=== PATIENT | male | born 1955 | race Caucasian/White ===

== ENCOUNTER 2017-03-15 12:40 | Emergency (ER) | payer OTHER ==
[2017-03-15 13:34] VITALS: BP 123/69; PULSE 89; RESP 18; TEMP 101.2
[2017-03-15] MEDS ORDERED: AMOXIC-POT CLAV 875MG STARTER 2 EACH TABLET PO STA (13:47)
[2017-03-15] MEDS ORDERED: IBUPROFEN 600 MG TAB PO STA (13:49)
[2017-03-15] MEDS ORDERED: ACETAMINOPHEN TAB 500 MG TAB PO STA (13:49)
--- NOTE | 2017-03-15 13:52 | ED ---
General Adult HPI - General Chief complaint: ENT Stated complaint: Sore Throat, diff swallowing Time Seen by Provider: 03/15/17 13:35 Source: patient, family, RN notes reviewed Mode of arrival: wheelchair Limitations: no limitations - History of Present Illness Initial comments: 61-year-old male presents emergency deparment chief complaint of sore throat. Patient states he's had sore throat for the past 3 days. Patient states that he is having pain with swallowing. Patient denies any nausea vomiting with this. Patient states he has been cold and he is found to have a fever here. Patient denies any history of diabetes. Patient states that he was concerned due to his symptoms he thought that he should be evaluated. Patient states he was able to eat and drink last 2 days today he has not been eating and drinking much. Patient denies any other symptoms at this time.Patient denies any recent fever, chills, shortness of breath, chest pain, back pain, abdominal pain, nausea vomiting, numbness or tingling, dysuria or hematuria, constipation or diarrhea, headaches or visual changes, or any other current symptoms. - Related Data Home Medications Medication Instructions Recorded Confirmed Aspirin 81 mg PO QAM 05/23/14 01/03/16 Cyclobenzaprine [Flexeril] 10 mg PO HS 05/23/14 01/03/16 Multivitamins, Thera [Multivitamin 1 tab PO QAM 05/23/14 01/03/16 (formulary)] Atorvastatin Calcium [Lipitor] 80 mg PO HS 10/10/14 01/03/16 Cetirizine HCl [Zyrtec] 10 mg PO QAM 10/10/14 01/03/16 Oxybutynin Chloride [Ditropan] 5 mg PO QID 10/10/14 01/03/16 Gabapentin [Neurontin] 100 mg PO TID 01/03/16 01/03/16 Metoprolol Tartrate [Lopressor] 50 mg PO BID 01/03/16 01/03/16 Nortriptyline [Pamelor] 10 mg PO HS 01/03/16 01/03/16 Polyethylene Glycol 3350 [Miralax] 17 gm PO QAM 01/03/16 01/03/16 Previous Rx's Medication Instructions Recorded Baclofen [Lioresal] 10 mg PO TID tab 01/04/16 Pregabalin [Lyrica] 150 mg PO TID cap 01/04/16 Amoxicillin/Potassium Clav 1 tab PO Q12HR #20 tab 03/15/17 [Augmentin 875-125 Tablet] Fluconazole [Diflucan] 100 mg PO DAILY #13 tab 03/15/17 Allergies Allergy/AdvReac Type Severity Reaction Status Date / Time No Known Allergies Allergy Verified 01/03/16 12:45 Review of Systems ROS Statement: Those systems with pertinent positive or pertinent negative responses have been documented in the HPI. ROS Other: All systems not noted in ROS Statement are negative. Past Medical History Past Medical History: CVA/TIA, Hyperlipidemia, Hypertension, Myocardial Infarction ([place]) Additional Past Medical History / Comment(s): bladder spasms Last Myocardial Infarction Date:: 1986 History of Any Multi-Drug Resistant Organisms: None Reported Past Surgical History: Heart Catheterization, Orthopedic Surgery Additional Past Surgical History / Comment(s): brain surg Past Anesthesia/Blood Transfusion Reactions: No Reported Reaction Past Psychological History: No Psychological Hx Reported Smoking Status: Former smoker Past Alcohol Use History: None Reported Past Drug Use History: None Reported General Exam - General Exam Comments Initial Comments: General exam: Alert, active, comfortable in no apparent distress Head: Normocephalic Eyes: Normal reaction of pupils, equal size, normal range of extraocular motion Ears: normal external ear canals, pink tympanic membranes with normal cone of light Nose: clear with pink turbinates Throat: Patient has diffuse erythema with diffuse exudates. Neck: no masses, no nuchal rigidity Chest: no chest wall deformity Lungs: equal air entry with no crackles or wheeze CVS: S1 and S2 normal with no audible mumurs, regular rhythm Abdomen: no hepatosplenomegaly, normal bowel sounds, no guarding or rigidity Spine: no scoliosis or deformity Skin: no rashes Neurological: No focal deficits, tone is normal in all 4 extremities Limitations: no limitations Course Vital Signs 03/15/17 13:29 Temperature 101.2 F H Pulse Rate 89 Respiratory 18 Rate Blood Pressure 123/69 O2 Sat by Pulse 96 Oximetry Medical Decision Making - Medical Decision Making 61-year-old male presents with what appears to be thrush there is concern due the high fever that if there is also an additional infection. We'll put the patient on antibiotics as well as oral anti-levels. We did discuss close follow up with Dr. return parameters. Patient stated he understood and is in agreement with plan. At this time he will be discharged home. Disposition Clinical Impression: Acute pharyngitis, Oral thrush Disposition: HOME SELF-CARE Condition: Stable Instructions: Oral Candidiasis (ED), Pharyngitis (ED) Additional Instructions: Please use medication as discussed. Please follow up with family doctor if symptoms have not improved over the next two days. Please return to the emergency room if your symptoms increase or worsen or for any other concerns. Prescriptions: Amoxicillin/Potassium Clav [Augmentin 875-125 Tablet] 1 tab PO Q12HR #20 tab Fluconazole [Diflucan] 100 mg PO DAILY #13 tab Referrals: Beni Vargas DO [Primary Care Provider] - 1-2 days Time of Disposition: 13:52
[2017-03-15] MEDS ORDERED: FLUCONAZOLE 100 MG TAB PO ONE (14:00)
== END 2017-03-15 14:31 | disposition home or self-care (01) ==
LOC: EC 12:40
DX: J02.9 Acute pharyngitis, unspecified (principal); B37.0 Candidal stomatitis; I10 Essential (primary) hypertension; E78.5 Hyperlipidemia, unspecified; Z87.891 Personal history of nicotine dependence; Z79.82 Long term (current) use of aspirin; Z79.899 Other long term (current) drug therapy
CPT/HCPCS: 99284

== ENCOUNTER 2017-06-30 15:25 | Inpatient (IN) | payer OTHER, MEDICARE ==
--- NOTE | 2017-06-30 15:52 | ED ---
General Adult HPI - General Chief complaint: Upper Respiratory Infection Stated complaint: Fever Time Seen by Provider: 06/30/17 15:30 Source: patient, EMS, RN notes reviewed Mode of arrival: EMS Limitations: no limitations - History of Present Illness Initial comments: This is a 61-year-old male who has a past medical history significant for stroke with left-sided paralysis. Patient comes in today because he states for the last week and a half he's been having congestion and a lot of drainage which is making him cough per patient states she's been put on a Zithromax and he states it hasn't helped. Patient denies shortness of breath or difficulty breathing. Patient denies any chest pain or palpitations. Patient states she has a cough but is not producing any sputum. Patient denies any abdominal pain patient denies nausea vomiting diarrhea. - Related Data Home Medications Medication Instructions Recorded Confirmed Aspirin 81 mg PO QAM 05/23/14 06/30/17 Multivitamins, Thera [Multivitamin 1 tab PO QAM 05/23/14 06/30/17 (formulary)] Atorvastatin Calcium [Lipitor] 80 mg PO HS 10/10/14 06/30/17 Cetirizine HCl [Zyrtec] 10 mg PO QAM 10/10/14 06/30/17 Oxybutynin Chloride [Ditropan] 5 mg PO QID 10/10/14 06/30/17 Metoprolol Tartrate [Lopressor] 50 mg PO BID 01/03/16 06/30/17 Nortriptyline [Pamelor] 20 mg PO HS 01/03/16 06/30/17 FLUoxetine HCL [PROzac] 10 mg PO DAILY 06/30/17 06/30/17 Gabapentin [Neurontin] 400 mg PO TID 06/30/17 06/30/17 Melatonin 3 mg PO HS 06/30/17 06/30/17 QUEtiapine [SEROquel] 25 mg PO HS 06/30/17 06/30/17 Zolpidem [Ambien] 10 mg PO HS PRN 06/30/17 06/30/17 Allergies Allergy/AdvReac Type Severity Reaction Status Date / Time No Known Allergies Allergy Verified 06/30/17 15:36 Review of Systems ROS Statement: Those systems with pertinent positive or pertinent negative responses have been documented in the HPI. ROS Other: All systems not noted in ROS Statement are negative. Past Medical History Past Medical History: CVA/TIA, Hyperlipidemia, Hypertension, Myocardial Infarction ([place]) Additional Past Medical History / Comment(s): bladder spasms Last Myocardial Infarction Date:: 1986 History of Any Multi-Drug Resistant Organisms: None Reported Past Surgical History: Heart Catheterization, Orthopedic Surgery Additional Past Surgical History / Comment(s): brain surg Past Anesthesia/Blood Transfusion Reactions: No Reported Reaction Past Psychological History: No Psychological Hx Reported Smoking Status: Former smoker Past Alcohol Use History: None Reported Past Drug Use History: None Reported General Exam - General Exam Comments Initial Comments: GENERAL: Patient is well-developed and well-nourished. Patient is nontoxic and well- hydrated and is in mild distress. ENT: Neck is soft and supple. No significant lymphadenopathy is noted. Oropharynx is clear. Moist mucous membranes. Neck has full range of motion without eliciting any pain. EYES: The sclera were anicteric and conjunctiva were pink and moist. Extraocular movements were intact and pupils were equal round and reactive to light. Eyelids were unremarkable. PULMONARY: Crackles are present in the left base CARDIOVASCULAR: There is a regular rate and rhythm without any murmurs gallops or rubs. Femoral pulses are equal bilaterally ABDOMEN: Soft and nontender with normal bowel sounds. No palpable organomegaly was noted. There is no palpable pulsatile mass. SKIN: Skin is clear with no lesions or rashes and otherwise unremarkable. NEUROLOGIC: Patient is alert and oriented x3. Cranial nerves II through XII are grossly intact. Left sided weakness. Normal speech, volume and content. Symmetrical smile. MUSCULOSKELETAL: Normal extremities with adequate strength and full range of motion. No lower extremity swelling or edema. No calf tenderness. LYMPHATICS: No significant lymphadenopathy is noted PSYCHIATRIC: Normal psychiatric evaluation. Limitations: no limitations Course Vital Signs 06/30/17 06/30/17 06/30/17 15:29 16:09 16:10 Temperature 98.0 F Pulse Rate 77 72 Respiratory 18 20 18 Rate Blood Pressure 120/60 137/61 O2 Sat by Pulse 95 96 Oximetry 06/30/17 16:40 Temperature Pulse Rate 69 Respiratory 18 Rate Blood Pressure 119/67 O2 Sat by Pulse 95 Oximetry Medical Decision Making - Medical Decision Making EKG shows normal sinus rhythm at 77 bpm RI interval is 180 QRSs 84 Q-T intervals 424 QTC is 479 per patient's EKG shows no ST segment elevation or depression or T wave normalities are noted. Chest x-ray showed left lower lobe pneumonia. I started the patient on Levaquin and admitted the patient. - Lab Data Result diagrams: 06/30/17 16:01 06/30/17 16:01 Lab Results 06/30/17 06/30/17 06/30/17 Range/Units 16:01 16:01 16:01 WBC 13.7 H (3.8-10.6) k/uL RBC 4.34 (4.30-5.90) m/uL Hgb 12.1 L (13.0-17.5) gm/dL Hct 39.0 (39.0-53.0) % MCV 89.9 (80.0-100.0) fL MCH 27.8 (25.0-35.0) pg MCHC 31.0 (31.0-37.0) g/dL RDW 14.0 (11.5-15.5) % Plt Count 267 (150-450) k/uL Neutrophils % 59 % Lymphocytes % 27 % Monocytes % 7 % Eosinophils % 4 % Basophils % 1 % Neutrophils # 8.1 H (1.3-7.7) k/uL Lymphocytes # 3.7 (1.0-4.8) k/uL Monocytes # 1.0 (0-1.0) k/uL Eosinophils # 0.6 (0-0.7) k/uL Basophils # 0.1 (0-0.2) k/uL Hypochromasia Slight Sodium 140 (137-145) mmol/L Potassium 4.6 (3.5-5.1) mmol/L Chloride 108 H (98-107) mmol/L Carbon Dioxide 23 (22-30) mmol/L Anion Gap 9 mmol/L BUN 15 (9-20) mg/dL Creatinine 0.90 (0.66-1.25) mg/dL Est GFR (MDRD) Af Amer >60 (>60 ml/min/1.73 sqM) Est GFR (MDRD) Non-Af >60 (>60 ml/min/1.73 sqM) Glucose 84 (74-99) mg/dL Calcium 8.8 (8.4-10.2) mg/dL Magnesium 2.1 (1.6-2.3) mg/dL Total Bilirubin 0.4 (0.2-1.3) mg/dL AST 16 L (17-59) U/L ALT 30 (21-72) U/L Alkaline Phosphatase 82 (38-126) U/L NT-Pro-B Natriuret Pep 420 pg/mL Total Protein 6.6 (6.3-8.2) g/dL Albumin 3.4 L (3.5-5.0) g/dL Disposition Clinical Impression: Pneumonia Disposition: ADMITTED IP TO THIS HOSP Referrals: Beni Vargas DO [Primary Care Provider] - 1-2 days Time of Disposition: 17:11
[2017-06-30 16:19] LABS: Basophils # (A) 0.1 k/uL (0-0.2); Basophils % (A) 1 %; CH 28.1; CHCM 31.4; Eosinophils # (A) 0.6 k/uL (0-0.7); Eosinophils % (A) 4 %; HDW 2.54; HGB 12.1 gm/dL (13.0-17.5); Hypochromasia Slight; Luc # (Auto) 0.31; Luc % (Auto) 2; Lymphocytes # (A) 3.7 k/uL (1.0-4.8); Lymphocytes % (A) 27 %; MCH 27.8 pg (25.0-35.0); MCV 89.9 fL (80.0-100.0); Monocytes % (A) 7 %; Neutrophils # (A) 8.1 k/uL (1.3-7.7); Neutrophils % (A) 59 %; RBC 4.34 m/uL (4.30-5.90); WBC 13.7 k/uL (3.8-10.6); WBC (Perox) 14.03
[2017-06-30 16:29] LABS: ALT 30 U/L (21-72); AST 16 U/L (17-59); Alkaline Phosphatase 82 U/L (38-126); Anion Gap 9 mmol/L; Blood Urea Nitrogen 15 mg/dL (9-20); Calcium 8.8 mg/dL (8.4-10.2); Carbon Dioxide 23 mmol/L (22-30); Chloride 108 mmol/L (98-107); Glucose 84 mg/dL (74-99); Magnesium 2.1 mg/dL (1.6-2.3); Non-African American GFR(MDRD) >60 (>60 ml/min/1.73 sqM); Potassium 4.6 mmol/L (3.5-5.1); Sodium 140 mmol/L (137-145); Total Bilirubin 0.4 mg/dL (0.2-1.3); Total Protein 6.6 g/dL (6.3-8.2)
--- NOTE | 2017-06-30 16:29 | XR ---
EXAMINATION TYPE: XR chest 2V DATE OF EXAM: 06/30/2017 COMPARISON: 10/10/2014 HISTORY: Difficulty breathing TECHNIQUE: Frontal and lateral views of the chest are obtained. FINDINGS: There is no pleural effusion or pneumothorax. The cardiac silhouette size is mildly enlar ged. Left basilar opacity is difficult to evaluate given the elevation of the left hemidiaphragm but is seen within the retrocardiac airspace. The osseous structures are intact. IMPRESSION: Left basilar airspace disease with resultant left hemidiaphragm elevation favored to rep resent atelectasis although could represent pneumonia in the appropriate clinical setting.
[2017-06-30] MEDS ORDERED: LEVOFLOXACIN 750MG-D5W PMX 750 MG in DEXTROSE/WATER 1 150ML.BAG IVPB STA (17:07)
[2017-06-30] MEDS ORDERED: PNEUMONIA PROTOCOL UTILIZED 1 EACH MISC PO PRN (17:11)
[2017-06-30] MEDS ORDERED: ZOLPIDEM 10 MG TAB PO PRN (19:38)
[2017-06-30] MEDS: MELATONIN 3 MG TABLET PO SCH (20:57)
[2017-06-30] MEDS: QUEtiapine 25 MG TAB PO SCH (20:57)
[2017-06-30] MEDS: NORTRIPTYLINE 10 MG CAP PO SCH (20:57)
[2017-06-30] MEDS: OXYBUTYNIN CHLORIDE 5 MG TAB PO SCH (20:57)
[2017-06-30] MEDS: ATORVASTATIN 80 MG TAB PO SCH (20:57)
[2017-06-30] MEDS: METOPROLOL TARTRATE 50 MG TAB PO SCH (20:58)
[2017-06-30] MEDS: GABAPENTIN 400 MG CAP PO SCH (20:58)
[2017-06-30] MEDS: ACETAMINOPHEN TAB 325 MG TAB PO PRN (22:20)
--- NOTE | 2017-07-01 06:30 | XR ---
EXAMINATION TYPE: XR chest 2V DATE OF EXAM: 07/01/2017 HISTORY: pneumonia. REFERENCE: Previous study dated 06/30/2017. FINDINGS: There is continuing left basilar airspace disease. This may have worsened slightly from pre vious. The right lung is clear. The heart is not enlarged. I could not exclude a tiny left effusion.. IMPRESSION: CONTAINING A LEFT BASILAR AIRSPACE DISEASE WITH A SMALL, CONCOMITANT EFFUSION.
[2017-07-01] MEDS: ACETAMINOPHEN TAB 325 MG TAB PO PRN ×2 (07:25→22:08)
[2017-07-01] MEDS: METOPROLOL TARTRATE 50 MG TAB PO SCH ×2 (09:08→21:39)
[2017-07-01] MEDS: OXYBUTYNIN CHLORIDE 5 MG TAB PO SCH ×4 (09:08→21:39)
[2017-07-01] MEDS: GABAPENTIN 400 MG CAP PO SCH ×3 (09:08→21:39)
--- NOTE | 2017-07-01 12:18 | P.CNPUL ---
History of Present Illness Consult date: 07/01/17 Requesting physician: Lan Vizcaino Reason for consult: dyspnea, abnormal CXR/CT Chief complaint: Cough, congestion, shortness of breath History of present illness: This is a very pleasant 61-year-old gentleman who follows with the [facility] for his primary care needs. He has a history of previous CVA with residual left- sided paralysis wears a brace to the left lower extremity. He needs assistance 2 with ambulation. He also has hypertension, hyperlipidemia, myocardial infarction, depression and a history of chronic tobacco dependence 43 years, quit 4 years ago. He denies any history of COPD/emphysema. On no inhalers at home. He presented to the emergency room yesterday with complaints of weakness and fatigue, increasing shortness of breath, cough and congestion. He has been on Zithromax without much improvement. Chest x-ray revealed evidence of left basilar airspace disease with small effusion. WBC 12.7. T-max 101.3. He is maintaining O2 saturations in the 90s on room air. He's been hemodynamically stable. He is seen today in consultation on the regular medical floor. He is awake and alert in no acute distress. He states he is breathing about the same today as compared to yesterday. Complaints of sinus pressure and drainage. He continues with a loose nonproductive cough. Difficulty expectorating the mucus. He has been initiated on Levaquin. Review of Systems 14 point review of system was conducted. All negative other than as mentioned in the HPI. Past Medical History Past Medical History: CVA/TIA, Hyperlipidemia, Hypertension, Myocardial Infarction ([place]) Additional Past Medical History / Comment(s): OVERACTIVE BLADDER,WEARS A BRIEF. "MASSIVE STROKE AFFECTED NON DOMINANT LT SIDE-WEARS LT LEG BRACE. ABLE TO TRANSFER SELF FROM BED TO CHAIR BUT NOT AMBULATE BY SELF. CURRENTLY WORKING W/ PT W/ [employer]/ASSISTANCE AND A CANE -SHORT DISTANCE. BUT AFTER ABOUT 10 STEPS GETS LEG CRAMPS" Last Myocardial Infarction Date:: 1986 History of Any Multi-Drug Resistant Organisms: None Reported Past Surgical History: Heart Catheterization, Orthopedic Surgery Additional Past Surgical History / Comment(s): D/T BRAIN SWELLING AFTER MASSIVE STROKE PT STATED THEY TOOK RT SIDE OF SKULL OFF AND PLACED IN RT SIDE OF ABD TO KEEP IT VIABLE UNTIL THEY COULD PUT IT BACK. OTHER HX" SEVERAL HEART CATHS NO STENTS, JOE KNEE SX-CARTILAGE REMOVED. Past Anesthesia/Blood Transfusion Reactions: No Reported Reaction Smoking Status: Former smoker - Past Family History Father History Unknown: Yes Mother Family Medical History: Hyperlipidemia, Hypertension, Thyroid Disorder Medications and Allergies Home Medications Medication Instructions Recorded Confirmed Type Aspirin 81 mg PO QAM 05/23/14 06/30/17 History Multivitamins, Thera [Multivitamin 1 tab PO QAM 05/23/14 06/30/17 History (formulary)] Atorvastatin Calcium [Lipitor] 80 mg PO HS 10/10/14 06/30/17 History Cetirizine HCl [Zyrtec] 10 mg PO QAM 10/10/14 06/30/17 History Oxybutynin Chloride [Ditropan] 5 mg PO QID 10/10/14 06/30/17 History Metoprolol Tartrate [Lopressor] 50 mg PO BID 01/03/16 06/30/17 History Nortriptyline [Pamelor] 20 mg PO HS 01/03/16 06/30/17 History FLUoxetine HCL [PROzac] 10 mg PO DAILY 06/30/17 06/30/17 History Gabapentin [Neurontin] 400 mg PO TID 06/30/17 06/30/17 History Melatonin 3 mg PO HS 06/30/17 06/30/17 History QUEtiapine [SEROquel] 25 mg PO HS 06/30/17 06/30/17 History Zolpidem [Ambien] 10 mg PO HS PRN 06/30/17 06/30/17 History Allergies Allergy/AdvReac Type Severity Reaction Status Date / Time No Known Allergies Allergy Verified 06/30/17 15:36 Physical Exam Vitals: Vital Signs Temp Pulse Pulse Resp BP BP Pulse Ox 07/01/17 10:50 122/67 94 L 07/01/17 10:20 99.8 F H 76 12 96/54 91 L 07/01/17 08:00 81 16 07/01/17 07:31 92 L 07/01/17 07:11 98.4 F 81 16 149/107 92 L 07/01/17 01:32 99 F 06/30/17 22:21 101.3 F H 90 18 119/69 94 L 06/30/17 18:22 99.0 F 82 16 113/54 95 06/30/17 17:29 98.1 F 77 18 117/71 96 06/30/17 17:12 94 L 06/30/17 16:40 69 18 119/67 95 06/30/17 16:10 72 18 137/61 96 06/30/17 16:09 20 06/30/17 15:29 98.0 F 77 18 120/60 95 Intake and Output 06/30/17 07/01/17 07/01/17 22:59 06:59 14:59 Other: Voiding Method Urinal Urinal # Voids 1 2 Weight 90.718 kg GENERAL EXAM: Alert, comfortable in no apparent distress. HEAD: Evidence of previous right-sided brain surgery. Left facial droop. EYES: Normal reaction of pupils, equal size. NOSE: Clear with pink turbinates. THROAT: No erythema or exudates. NECK: No masses, no JVD. CHEST: No chest wall deformity. LUNGS: Equal air entry with bilateral wheeze,crackles in the left posterior bases. CVS: S1 and S2 normal with no audible murmur, regular rhythm. ABDOMEN: No hepatosplenomegaly, normal bowel sounds, no guarding or rigidity. SPINE: No scoliosis or deformity SKIN: No rashes CENTRAL NERVOUS SYSTEM: Old CVA with residual left-sided paralysis. EXTREMITIES: There is no peripheral edema. No clubbing, no cyanosis. Peripheral pulses are intact. Results - Laboratory Findings CBC and BMP: 06/30/17 16:01 06/30/17 16:01 Abnormal lab findings: Abnormal Labs 06/30/17 06/30/17 16:01 16:01 WBC 13.7 H Hgb 12.1 L Neutrophils # 8.1 H Chloride 108 H AST 16 L Albumin 3.4 L - Diagnostic Findings Chest x-ray: image reviewed Assessment and Plan Assessment: Impression: #1 Left lower lobe infiltrate/pneumonia, community-acquired. #2 Suspected acute exacerbation of chronic obstructive pulmonary disease secondary to above. The patient has not had a pulmonary workup in the outpatient setting. #3 Chronic tobacco dependence at 1 pack per day 43 years, quit 4 years ago. #4 History of right-sided CVA with residual left-sided paralysis requiring previous right-sided craniotomy. #5 History of myocardial infarction with previous cardiac catheterizations without intervention. #6 Hyperlipidemia. #7 Hypertension. Plan: The patient was seen and evaluated by Dr. Yeboah. His chest x-ray and labs were reviewed. We'll continue the patient on Levaquin. We'll add DuoNeb inhalations every 4 hours and when necessary. We'll initiate IV Solu-Medrol. Add Mucinex. Initiate heparin for DVT prophylaxis. The patient would benefit from outpatient workup including full pulmonary function testing to evaluate the severity of his suspected COPD. We will repeat a chest x-ray in the a.m. We'll continue to follow. I, the cosigning physician, have performed a history and physical examination on the patient. Lung sounds faint end expiratory wheeze, crackles in the left posterior base.. Maintaining good O2 saturations in the 90s on room air. I have discussed the assessment and plan of care with my nurse practitioner, Yazmin Gottlieb. I attest the above consultation as dictated by her. Time with Patient: Greater than 30
[2017-07-01] MEDS: IPRATROPIUM-ALBUTEROL 3 ML NEB INHALATION SCH ×2 (13:22→21:12)
--- NOTE | 2017-07-01 16:02 | HP ---
HISTORY AND PHYSICAL DATE OF SERVICE: 07/01/2017 I am covering for Dr. Sykes. CHIEF COMPLAINTS: Cough and sputum and fever. HISTORY OF PRESENT ILLNESS: This 61-year-old gentleman with a past medical history of hypertension, hyperlipidemia, CVI, myocardial infarction being followed Dr. Josh Sykes in the outpatient setting was not feeling well over the past several weeks, almost like 2-3 weeks and because of increasing symptomatology patient came to [facility] and found to have left lower pneumonia. There is no history of fever, rigors. No at bedtime of headache, loss of consciousness or seizures. PAST MEDICAL: Hypertension, hyperlipidemia, CVI TIA. MEDICATIONS: Prior to admission include: 1. Multivitamins 1 daily. 2. Ambien 10 mg q.h.s.. 3. Melatonin 3 mg q.h.s. 4. Neurontin 400 mg t.i.d. 5. Seroquel 25 mg q.h.s. 6. Ditropan 5 mg p.o. q.h.s. 7. Pamelor 20 mg q.h.s. 8. Prozac 10 mg. 9. Lipitor 80 mg q.h.s. 10.Aspirin 81 mg q.a.m. 11.Lopressor 50 mg p.o. b.i.d. 12.Zetia 10 mg p.o. q.a.m. ALLERGIES: None. FAMILY HISTORY: History of hypertension, hyperlipidemia, hypothyroidism. SOCIAL HISTORY: Previous history of smoking. No history of current smoking or alcohol intake. REVIEW OF SYSTEMS: ENT: Diminished hearing and vision. CARDIOVASCULAR: No angina. RESPIRATORY: As mentioned earlier. GI: No nausea. : No dysuria. NERVOUS SYSTEM: No numbness or weakness. ALLERGY/IMMUNOLOGY: No asthma or hayfever. MUSCULOSKELETAL: As mentioned earlier. HEMATOLOGY: No history of anemia. ENDOCRINE: No history of diabetes, hypothyroidism. CONSTITUTIONAL: As mentioned earlier. DERMATOLOGY: Negative. RHEUMATOLOGY: Negative. PSYCHIATRY: As mentioned. PHYSICAL EXAM: Alert and oriented x3. Pulse 76, blood pressure 96/54, respirations 12, temperature 99.8, pulse ox 98% room air. HEENT: Conjunctivae normal. Oral mucosa moist. Neck is no jugular venous distention, no lymph node enlargement. CARDIOVASCULAR: S1, S2. RESPIRATORY: Breath sounds diminished in the bases. Bilateral scattered rhonchi and crackles. Expiratory wheezing also present. ABDOMEN: Soft, nontender. No mass palpable. LEGS: No edema, no swelling. NERVOUS SYSTEM: Higher functions as mentioned as mentioned. Moves all four limbs. No focal deficits. Left-sided weakness present. LYMPHATIC: No lymphadenopathy in the neck, axillae or groin. SKIN: No ulcers, rash or bleeding. LAB STUDIES: WBC 13.7, sodium 140, potassium 4.2. ASSESSMENT: 1. Chronic obstructive pulmonary disease acute exacerbation with acute left lower pneumonia possibly gram-negative with failure of outpatient treatment. 2. Increased WBC. 3. Hypertension. 4. Hyperlipidemia. 5. History of myocardial infarction. 6. History of cerebrovascular insufficiency. 7. Degenerative joint disease. 8. History of nicotine dependence. RECOMMENDATION AND DISCUSSION: I recommend to continue current management and symptomatic treatment. Otherwise at this time I recommend continue with broad-spectrum IV antibiotics and also bronchodilators, short course of steroids. Pulmonary consultation. Will follow the patient closely with DVT prophylaxis and resume the home medications. Dr. Sykes will follow. MMJML / SALOMEN: [id number] / ARIANE
[2017-07-01 17:02] LABS: Glucose,Whole Blood 105 mg/dL (75-99)
[2017-07-01] MEDS: methylPREDNISolone SOD SUCCI 40 MG/ML 1 ML VIAL IV SCH ×2 (17:13→23:32)
[2017-07-01] MEDS: LEVOFLOXACIN 750MG-D5W PMX 750 MG in DEXTROSE/WATER 1 150ML.BAG IVPB SCH (18:38)
[2017-07-01 20:15] LABS: Glucose,Whole Blood 170 mg/dL (75-99)
[2017-07-01] MEDS: ATORVASTATIN 80 MG TAB PO SCH (21:38)
[2017-07-01] MEDS: MELATONIN 3 MG TABLET PO SCH (21:38)
[2017-07-01] MEDS: INSULIN ASPART 100 UNIT/ML 1 ML 10 ML VIAL SQ SCH (21:38)
[2017-07-01] MEDS: NORTRIPTYLINE 10 MG CAP PO SCH (21:38)
[2017-07-01] MEDS: HEPARIN SODIUM,PORCINE 5,000 UNIT/ML 1 ML VIAL SQ SCH (21:39)
[2017-07-01] MEDS: QUEtiapine 25 MG TAB PO SCH (21:40)
[2017-07-02] MEDS: IPRATROPIUM-ALBUTEROL 3 ML NEB INHALATION SCH ×4 (07:16→20:31)
[2017-07-02 07:35] LABS: Glucose,Whole Blood 145 mg/dL (75-99)
[2017-07-02] MEDS: INSULIN ASPART 100 UNIT/ML 1 ML 10 ML VIAL SQ SCH ×4 (08:15→21:22)
[2017-07-02] MEDS: ACETAMINOPHEN TAB 325 MG TAB PO PRN ×2 (09:12→19:21)
[2017-07-02] MEDS: METOPROLOL TARTRATE 50 MG TAB PO SCH ×2 (09:14→21:21)
[2017-07-02] MEDS: OXYBUTYNIN CHLORIDE 5 MG TAB PO SCH ×4 (09:14→21:21)
[2017-07-02] MEDS: FLUoxetine HCL 10 MG CAP PO SCH (09:15)
[2017-07-02] MEDS: HEPARIN SODIUM,PORCINE 5,000 UNIT/ML 1 ML VIAL SQ SCH ×2 (09:15→21:20)
[2017-07-02] MEDS: LORATADINE 10 MG TAB PO SCH (09:15)
[2017-07-02] MEDS: ASPIRIN 81 MG PO SCH (09:15)
[2017-07-02] MEDS: GABAPENTIN 400 MG CAP PO SCH ×3 (09:15→21:20)
[2017-07-02] MEDS: methylPREDNISolone SOD SUCCI 40 MG/ML 1 ML VIAL IV SCH ×3 (09:30→23:34)
--- NOTE | 2017-07-02 11:49 | P.PN ---
Subjective Progress Note Date: 07/02/17 Principal diagnosis: Acute community-acquired left lower lobe pneumonia This is a very pleasant 61-year-old gentleman who follows with the [facility] for his primary care needs. He has a history of previous CVA with residual left- sided paralysis wears a brace to the left lower extremity. He needs assistance 2 with ambulation. He also has hypertension, hyperlipidemia, myocardial infarction, depression and a history of chronic tobacco dependence 43 years, quit 4 years ago. He denies any history of COPD/emphysema. On no inhalers at home. He presented to the emergency room yesterday with complaints of weakness and fatigue, increasing shortness of breath, cough and congestion. He has been on Zithromax without much improvement. Chest x-ray revealed evidence of left basilar airspace disease with small effusion. WBC 12.7. T-max 101.3. He is maintaining O2 saturations in the 90s on room air. He's been hemodynamically stable. He is seen today in consultation on the regular medical floor. He is awake and alert in no acute distress. He states he is breathing about the same today as compared to yesterday. Complaints of sinus pressure and drainage. He continues with a loose nonproductive cough. Difficulty expectorating the mucus. He has been initiated on Levaquin. Patient was reevaluated today on 07/02/2017, feeling much better, breathing a lot easier. Hardly any cough no wheezing no shortness of breath no chest pain, no fever, no chills, no hemoptysis. Patient has made a significant improvement over the last 24 hours, hence I plan to have a repeat chest x-ray on the patient in a.m., and possibly consider discharge planning in the next 24 hours. Objective - Vital Signs Vital signs: Vital Signs Temp 97.5 F L 07/02/17 07:03 Pulse 90 07/02/17 09:23 Resp 16 07/02/17 08:00 BP 107/62 07/02/17 09:23 Pulse Ox 94 L 07/02/17 07:03 Intake & Output 07/01/17 07/02/17 07/02/17 18:59 06:59 18:59 Intake Total 240 540 Output Total 200 100 Balance 40 540 -100 Intake: Oral 240 540 Output: Urine 200 100 Other: Voiding Method Urinal Urinal Urinal # Voids 2 1 1 - Exam GENERAL EXAM: Alert, comfortable in no apparent distress. HEAD: Evidence of previous right-sided brain surgery. Left facial droop. EYES: Normal reaction of pupils, equal size. NOSE: Clear with pink turbinates. THROAT: No erythema or exudates. NECK: No masses, no JVD. CHEST: No chest wall deformity. LUNGS: Equal air entry clear, no crackles or rhonchi or wheezes noted today. CVS: S1 and S2 normal with no audible murmur, regular rhythm. ABDOMEN: No hepatosplenomegaly, normal bowel sounds, no guarding or rigidity. SPINE: No scoliosis or deformity SKIN: No rashes CENTRAL NERVOUS SYSTEM: Old CVA with residual left-sided paralysis. EXTREMITIES: There is no peripheral edema. No clubbing, no cyanosis. Peripheral pulses are intact. - Labs CBC & Chem 7: 06/30/17 16:01 06/30/17 16:01 Labs: Abnormal Lab Results - Last 24 Hours (Table) 07/01/17 07/01/17 07/02/17 Range/Units 17:01 20:13 07:19 POC Glucose (mg/dL) 105 H 170 H 145 H (75-99) mg/dL Microbiology - Last 24 Hours (Table) 06/30/17 18:55 Blood Culture - Preliminary Blood No Growth after 24 hours Assessment and Plan Assessment: #1 acute Left lower lobe pneumonia, community-acquired. #2 Suspected acute exacerbation of chronic obstructive pulmonary disease secondary to above. The patient has not had a pulmonary workup in the outpatient setting. #3 Chronic tobacco dependence at 1 pack per day 43 years, quit 4 years ago. #4 History of right-sided CVA with residual left-sided paralysis requiring previous right-sided craniotomy. #5 History of myocardial infarction with previous cardiac catheterizations without intervention. #6 Hyperlipidemia. #7 Hypertension. Recommendation: Continue present meds, antibiotics, bronchodilators, repeat chest x-ray in a.m., and consider discharge planning in a.m. as long as the chest x-ray is not showing any worsening. Clinically the patient is much better compared to how he felt in the last 24 hours. Time with Patient: Less than 30
[2017-07-02 11:53] LABS: Glucose,Whole Blood 242 mg/dL (75-99)
[2017-07-02] MEDS: MULTIVITAMINS, THERA 1 EACH TAB PO SCH (12:29)
[2017-07-02 17:32] LABS: Glucose,Whole Blood 195 mg/dL (75-99)
[2017-07-02] MEDS: LEVOFLOXACIN 750MG-D5W PMX 750 MG in DEXTROSE/WATER 1 150ML.BAG IVPB SCH (18:31)
[2017-07-02 20:15] LABS: Glucose,Whole Blood 169 mg/dL (75-99)
[2017-07-02] MEDS: MELATONIN 3 MG TABLET PO SCH (21:20)
[2017-07-02] MEDS: NORTRIPTYLINE 10 MG CAP PO SCH (21:21)
[2017-07-02] MEDS: ATORVASTATIN 80 MG TAB PO SCH (21:21)
[2017-07-02] MEDS: QUEtiapine 25 MG TAB PO SCH (21:21)
--- NOTE | 2017-07-02 22:06 | PN ---
PROGRESS NOTE 61-year-old white male with pneumonia, community-acquired pneumonia, started on IV Levaquin, IV steroids, updraft treatments. He has improved. His breathing in the last 24 to 48 hours greatly improved. Lungs show scattered wheeze and rhonchi x4. Cardiovascular S1, S2. Abdomen is soft. ENT within normal limits. ASSESSMENT: 1. Pneumonia. 2. Chronic obstructive pulmonary disease exacerbation. Continue with steroid taper, updraft treatments, and Levaquin. Possible discharge home in the next 48-72 hours. MMODL / IJN: [id number] /
[2017-07-03 07:18] LABS: Glucose,Whole Blood 131 mg/dL (75-99)
[2017-07-03 07:37] LABS: Basophils % (A) 0 %; CHCM 31.2; Eosinophils # (A) 0.1 k/uL (0-0.7); Eosinophils % (A) 1 %; HCT 38.8 % (39.0-53.0); HDW 2.56; HGB 11.8 gm/dL (13.0-17.5); Hypochromasia Slight; Luc # (Auto) 0.06; Luc % (Auto) 0; Lymphocytes # (A) 1.7 k/uL (1.0-4.8); Lymphocytes % (A) 11 %; MCH 27.5 pg (25.0-35.0); MCHC 30.5 g/dL (31.0-37.0); MCV 90.3 fL (80.0-100.0); Mean Platelet Volume 7.4; Monocytes # (A) 0.6 k/uL (0-1.0); Monocytes % (A) 4 %; Neutrophils # (A) 13.2 k/uL (1.3-7.7); Neutrophils % (A) 84 %; RDW 13.7 % (11.5-15.5); WBC 15.7 k/uL (3.8-10.6); WBC (Perox) 15.84
[2017-07-03] MEDS: IPRATROPIUM-ALBUTEROL 3 ML NEB INHALATION SCH ×3 (07:37→19:20)
[2017-07-03 07:53] LABS: ALT 112 U/L (21-72); AST 78 U/L (17-59); Alkaline Phosphatase 87 U/L (38-126); Anion Gap 11 mmol/L; Blood Urea Nitrogen 24 mg/dL (9-20); Calcium 9.5 mg/dL (8.4-10.2); Carbon Dioxide 19 mmol/L (22-30); Chloride 110 mmol/L (98-107); Glucose 128 mg/dL (74-99); Non-African American GFR(MDRD) >60 (>60 ml/min/1.73 sqM); Potassium 5.1 mmol/L (3.5-5.1); Sodium 140 mmol/L (137-145); Total Bilirubin 0.1 mg/dL (0.2-1.3); Total Protein 6.8 g/dL (6.3-8.2)
[2017-07-03] MEDS: INSULIN ASPART 100 UNIT/ML 1 ML 10 ML VIAL SQ SCH ×4 (08:13→20:35)
[2017-07-03] MEDS: GABAPENTIN 400 MG CAP PO SCH ×3 (08:55→20:38)
[2017-07-03] MEDS: LORATADINE 10 MG TAB PO SCH (08:55)
[2017-07-03] MEDS: ACETAMINOPHEN TAB 325 MG TAB PO PRN (08:55)
[2017-07-03] MEDS: ASPIRIN 81 MG PO SCH (08:55)
[2017-07-03] MEDS: OXYBUTYNIN CHLORIDE 5 MG TAB PO SCH ×4 (08:55→20:36)
[2017-07-03] MEDS: METOPROLOL TARTRATE 50 MG TAB PO SCH ×2 (08:55→20:43)
[2017-07-03] MEDS: FLUoxetine HCL 10 MG CAP PO SCH (08:55)
[2017-07-03] MEDS: HEPARIN SODIUM,PORCINE 5,000 UNIT/ML 1 ML VIAL SQ SCH ×2 (08:56→20:37)
[2017-07-03] MEDS: methylPREDNISolone SOD SUCCI 40 MG/ML 1 ML VIAL IV SCH ×3 (08:56→23:38)
[2017-07-03] MEDS ORDERED: POLYETHYLENE GLYCOL 3350 17 GM POWD.PACK PO PRN (09:19)
--- NOTE | 2017-07-03 09:23 | XR ---
EXAMINATION TYPE: XR chest 2V DATE OF EXAM: 07/03/2017 COMPARISON: 07/01/2017 TECHNIQUE: PA and lateral views submitted. HISTORY: Possible pneumonia FINDINGS: Subsegmental changes at the left lung base persists. Atherosclerotic change aorta. Degenerative antonio e of the spine. No pneumothorax. No overt failure. IMPRESSION: 1. Left lower lobe atelectasis or infiltrate.
[2017-07-03 11:27] LABS: Glucose,Whole Blood 134 mg/dL (75-99)
--- NOTE | 2017-07-03 12:08 | P.PN ---
Subjective Progress Note Date: 07/03/17 Principal diagnosis: pneumonia progress note dated 07/03/2017 61-year-old patient admitted with a diagnosis of pneumonia on June 30. Patient is doing much better. Hoping to be discharged. Today's chest x-ray shows infiltrate/atelectasis of the left lung base. Feeling much better though. Breathing better. Minimal cough. No phlegm. Last chest congestion. No wheezing. Did not feel practically short of breath. Again hoping to be discharged today. That'll be up to Dr. Josh Sykes. Objective - Vital Signs Vital signs: Vital Signs Temp 98.4 F 07/03/17 07:00 Pulse 81 07/03/17 08:00 Resp 18 07/03/17 08:00 BP 109/64 07/03/17 07:00 Pulse Ox 91 L 07/03/17 07:37 Intake & Output 07/02/17 07/03/17 07/03/17 18:59 06:59 18:59 Intake Total 360 150 Output Total 500 275 Balance -140 -125 Intake: Intake, IV Titration 150 Amount Levofloxacin 750Mg-D5w 150 Pmx 750 mg In Dextrose/ Water 1 150ml.bag @ 100 mls/hr IVPB Q24H [facility] Rx#: [id number] Oral 360 Output: Urine 500 275 Other: Voiding Method Urinal Urinal Urinal # Voids 2 - Exam No acute distress, oriented 3. HEENT examination is grossly unremarkable. Mucous membranes are moist. No oral lesions. Neck supple. Full range of motion. No adenopathy or thyromegaly. Cardiovascular examination reveals regular rhythm rate. S1-S2 normal. Lungs reveal few scattered rhonchi. No wheezes or crackles. Abdomen soft bowel sounds are heard. Extremities are intact. No cyanosis clubbing or edema. Skin without rash. Neurologic examination is brief but nonfocal. - Labs CBC & Chem 7: 07/03/17 06:55 07/03/17 06:55 Labs: Abnormal Lab Results - Last 24 Hours (Table) 07/02/17 07/02/17 07/03/17 Range/Units 17:30 20:14 06:55 WBC 15.7 H (3.8-10.6) k/uL Hgb 11.8 L (13.0-17.5) gm/dL Hct 38.8 L (39.0-53.0) % MCHC 30.5 L (31.0-37.0) g/dL Neutrophils # 13.2 H (1.3-7.7) k/uL Chloride (98-107) mmol/L Carbon Dioxide (22-30) mmol/L BUN (9-20) mg/dL Glucose (74-99) mg/dL POC Glucose (mg/dL) 195 H 169 H (75-99) mg/dL Total Bilirubin (0.2-1.3) mg/dL AST (17-59) U/L ALT (21-72) U/L Albumin (3.5-5.0) g/dL 07/03/17 07/03/17 07/03/17 Range/Units 06:55 07:07 11:20 WBC (3.8-10.6) k/uL Hgb (13.0-17.5) gm/dL Hct (39.0-53.0) % MCHC (31.0-37.0) g/dL Neutrophils # (1.3-7.7) k/uL Chloride 110 H (98-107) mmol/L Carbon Dioxide 19 L (22-30) mmol/L BUN 24 H (9-20) mg/dL Glucose 128 H (74-99) mg/dL POC Glucose (mg/dL) 131 H 134 H (75-99) mg/dL Total Bilirubin 0.1 L (0.2-1.3) mg/dL AST 78 H (17-59) U/L ALT 112 H (21-72) U/L Albumin 3.3 L (3.5-5.0) g/dL Microbiology - Last 24 Hours (Table) 06/30/17 18:55 Blood Culture - Preliminary Blood No Growth after 48 hours Assessment and Plan (1) COPD exacerbation Current Visit: Yes Status: Acute Code(s): J44.1 - CHRONIC OBSTRUCTIVE PULMONARY DISEASE W (ACUTE) EXACERBATION SNOMED Code(s): 009287464320904 (2) Hypertension Current Visit: Yes Status: Acute Code(s): I10 - ESSENTIAL (PRIMARY) HYPERTENSION SNOMED Code(s): 43123612 (3) Pneumonia Current Visit: Yes Status: Acute Code(s): J18.9 - PNEUMONIA, UNSPECIFIED ORGANISM SNOMED Code(s): 201320655 (4) Chest pain Current Visit: No Status: Acute Code(s): R07.9 - CHEST PAIN, UNSPECIFIED SNOMED Code(s): 78936466 (5) Unstable angina pectoris Current Visit: No Status: Acute Code(s): I20.0 - UNSTABLE ANGINA SNOMED Code(s): 6691544 (6) CVA (cerebral infarction) Current Visit: No Status: Chronic Code(s): I63.9 - CEREBRAL INFARCTION, UNSPECIFIED SNOMED Code(s): 632249798 (7) Hypercholesterolemia Current Visit: No Status: Chronic Code(s): E78.0 - PURE HYPERCHOLESTEROLEMIA * DO NOT USE * SNOMED Code(s): 68465807 (8) Old myocardial infarction Current Visit: No Status: Chronic Code(s): I25.2 - OLD MYOCARDIAL INFARCTION SNOMED Code(s): 5704397 Plan: Plan dated 07/03/2017 The patient's doing well. Hopefully discharge today. The patient's chest x- ray still shows some residual infiltrate or atelectasis in the left lung base. Clinically the patient's doing well. His medical issues do not some be a problem at this time. Vital signs are stable. Time with Patient: Less than 30
[2017-07-03] MEDS: MULTIVITAMINS, THERA 1 EACH TAB PO SCH (12:26)
[2017-07-03 17:12] LABS: Glucose,Whole Blood 183 mg/dL (75-99)
[2017-07-03] MEDS ORDERED: LEVOFLOXACIN 750 MG TAB PO SCH (18:00)
[2017-07-03 20:02] LABS: Glucose,Whole Blood 150 mg/dL (75-99)
[2017-07-03] MEDS: NORTRIPTYLINE 10 MG CAP PO SCH (20:37)
[2017-07-03] MEDS: ATORVASTATIN 80 MG TAB PO SCH (20:37)
[2017-07-03] MEDS: QUEtiapine 25 MG TAB PO SCH (20:37)
[2017-07-03] MEDS: MELATONIN 3 MG TABLET PO SCH (20:42)
--- NOTE | 2017-07-03 22:15 | PN ---
PROGRESS NOTE SUBJECTIVE: A 61-year-old white male with pneumonia, COPD exacerbation. The patient continues on broad-spectrum Levaquin and IV steroids. We are going to wean down his doses. Possibly discharge him home on a Medrol Dosepak and Levaquin in the next 24 hours. He is improving greatly he states. Cardiovascular S1-S2. Lungs scattered rhonchi. Hematology negative Homans. Psych fair mood and affect. Neurologic alert orient x3. ASSESSMENT: 1. Prior cerebrovascular accident with left hemiparesis. 2. Hypertension. 3. Coronary artery disease. 4. Community-acquired pneumonia. 5. Acute hypoxemic respiratory failure secondary to above. Possible discharge home on Levaquin and Medrol Dosepak in the morning. MMODL / IJN: [id number] /
[2017-07-04 07:28] LABS: Glucose,Whole Blood 131 mg/dL (75-99)
[2017-07-04] MEDS: IPRATROPIUM-ALBUTEROL 3 ML NEB INHALATION SCH ×2 (07:29→12:57)
[2017-07-04 07:42] VITALS: BP 152/89; PULSE 66; RESP 18; TEMP 98.3
[2017-07-04] MEDS: methylPREDNISolone SOD SUCCI 40 MG/ML 1 ML VIAL IV SCH (07:42)
[2017-07-04] MEDS: GABAPENTIN 400 MG CAP PO SCH (07:43)
[2017-07-04] MEDS: METOPROLOL TARTRATE 50 MG TAB PO SCH (07:43)
[2017-07-04] MEDS: HEPARIN SODIUM,PORCINE 5,000 UNIT/ML 1 ML VIAL SQ SCH (07:43)
[2017-07-04] MEDS: LORATADINE 10 MG TAB PO SCH (07:43)
[2017-07-04] MEDS: ASPIRIN 81 MG PO SCH (07:43)
[2017-07-04] MEDS: OXYBUTYNIN CHLORIDE 5 MG TAB PO SCH (07:43)
[2017-07-04] MEDS: FLUoxetine HCL 10 MG CAP PO SCH (07:45)
[2017-07-04] MEDS: INSULIN ASPART 100 UNIT/ML 1 ML 10 ML VIAL SQ SCH (08:22)
--- NOTE | 2017-07-04 09:37 | DS ---
DISCHARGE SUMMARY DISCHARGE MEDICATIONS: 1. DuoNeb q.i.d. 2. Aspirin 81 mg daily. 3. Lipitor 80 mg daily. 4. Prozac 10 mg daily. 5. Neurontin 400 t.i.d. 6. Levaquin 500 mg 1 q. day for 7 days. 7. Steroid taper 60 mg of prednisone for 3 days, 40 mg for 3 days, 20 mg for 3 days, 10 mg for 3 days. 8. Claritin 10 mg daily. 9. Lopressor 50 b.i.d. 10. 20 q.h.s. 11.Ditropan 5 mg q.i.d. 12.Seroquel 25 q.h.s. 13.Zolpidem 10 mg p.r.n. for insomnia. CONDITION: Stable. PROGNOSIS: Guarded. ASSESSMENT: 1. Chronic obstructive pulmonary disease exacerbation and community-acquired pneumonia. 2. Acute hypoxemic respiratory distress. 3. Prior cerebrovascular accident with left hemiparesis. 4. Hypertension. 5. Coronary artery disease. 6. Dyslipidemia. 7. Depression, anxiety. 8. 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 HOSPITAL COURSE OF EVENTS: He was admitted to the hospital, started on IV steroids, IV antibiotics. He continued to improve from respiratory status with IV Levaquin, IV steroids, and updraft treatments. To follow up as an outpatient. Seen by nurse quality. Cleared for discharge. MMODL / IJN: [id number] /
[2017-07-04 12:12] LABS: Glucose,Whole Blood 124 mg/dL (75-99)
--- NOTE | 2017-07-04 14:08 | P.PN ---
Subjective Progress Note Date: 07/04/17 Principal diagnosis: Left lower lobe infiltrate/pneumonia, community-acquired, acute COPD exacerbation This is a very pleasant 61-year-old gentleman who follows with the [facility] for his primary care needs. He has a history of previous CVA with residual left- sided paralysis wears a brace to the left lower extremity. He needs assistance 2 with ambulation. He also has hypertension, hyperlipidemia, myocardial infarction, depression and a history of chronic tobacco dependence 43 years, quit 4 years ago. He denies any history of COPD/emphysema. On no inhalers at home. He presented to the emergency room yesterday with complaints of weakness and fatigue, increasing shortness of breath, cough and congestion. He has been on Zithromax without much improvement. Chest x-ray revealed evidence of left basilar airspace disease with small effusion. WBC 12.7. T-max 101.3. He is maintaining O2 saturations in the 90s on room air. He's been hemodynamically stable. He is seen today in consultation on the regular medical floor. He is awake and alert in no acute distress. He states he is breathing about the same today as compared to yesterday. Complaints of sinus pressure and drainage. He continues with a loose nonproductive cough. Difficulty expectorating the mucus. He has been initiated on Levaquin. On 07/04/2017 patient is seen in follow-up. He has significantly improved since admission. He has been afebrile for the past 3 days, but culture shows no growth since admission. Lung sounds are positive for inspiratory crackles at the left posterior base. Currently on room air with O2 sat at 92%. Respirations are even and nonlabored, no significant chest congestion or sputum production. He is stable for discharge home Objective - Vital Signs Vital signs: Vital Signs Temp 98.3 F 07/04/17 07:00 Pulse 66 07/04/17 08:45 Resp 18 07/04/17 08:45 BP 152/89 07/04/17 07:00 Pulse Ox 92 L 07/04/17 07:31 Intake & Output 07/03/17 07/04/17 07/04/17 18:59 06:59 18:59 Intake Total 540 480 Output Total 200 600 200 Balance 340 -120 -200 Intake: Oral 540 480 Output: Urine 200 600 200 Other: Voiding Method Urinal Urinal Bedside Commode Urinal # Voids 1 1 - Exam GENERAL EXAM: Alert, active, comfortable in no apparent distress. HEAD: Normocephalic/atraumatic. EYES: Normal reaction of pupils, equal size. Conjunctiva pink, sclera white. NOSE: Clear with pink turbinates. THROAT: No erythema or exudates. NECK: No masses, no JVD, no thyroid enlargement, no adenopathy. CHEST: No chest wall deformity. Symmetrical expansion. LUNGS: Equal air entry with a few bibasilar crackles but no wheezes, no rhonchi or dullness. CVS: Regular rate and rhythm, normal S1 and S2, no gallops, no murmurs, no rubs ABDOMEN: Soft, nontender. No hepatosplenomegaly, normal bowel sounds, no guarding or rigidity. EXTREMITIES: No clubbing, no edema, no cyanosis, 2+ pulses and upper and lower extremities. MUSCULOSKELETAL: Muscle strength and tone normal. SPINE: No scoliosis or deformity SKIN: No rashes CENTRAL NERVOUS SYSTEM: Alert and oriented -3. No focal deficits, tone is normal in all 4 extremities. PSYCHIATRIC: Alert and oriented -3. Appropriate affect. Intact judgment and insight. - Labs CBC & Chem 7: 07/03/17 06:55 07/03/17 06:55 Labs: Abnormal Lab Results - Last 24 Hours (Table) 07/03/17 07/03/17 07/04/17 Range/Units 17:11 20:00 07:25 POC Glucose (mg/dL) 183 H 150 H 131 H (75-99) mg/dL 07/04/17 Range/Units 12:10 POC Glucose (mg/dL) 124 H (75-99) mg/dL Microbiology - Last 24 Hours (Table) 06/30/17 18:55 Blood Culture - Preliminary Blood No Growth after 72 hours Assessment and Plan Plan: Assessment: #1 acute Left lower lobe pneumonia, community-acquired. #2 Suspected acute exacerbation of chronic obstructive pulmonary disease secondary to above. The patient has not had a pulmonary workup in the outpatient setting. #3 Chronic tobacco dependence at 1 pack per day 43 years, quit 4 years ago. #4 History of right-sided CVA with residual left-sided paralysis requiring previous right-sided craniotomy. #5 History of myocardial infarction with previous cardiac catheterizations without intervention. #6 Hyperlipidemia. #7 Hypertension. Recommendation: Patient has made significant improvement since admission. From pulmonary standpoint she is stable for discharge home today on 7 day course of Levaquin 500 mg daily, and prednisone taper over 12 days. Follow-up with Dr. Yeboah in the office in one week. Unfortunately patient has left the building before we could make a recommendation. Prescription for Levaquin and prednisone taper has been sent to [facility]. Case management was contacted and will follow up with the patient to make sure she picks up his prescriptions at the pharmacy and follows up with Dr. Yeboah. I performed a history & physical examination of the patient and discussed their management with my nurse practitioner, Niru Saez. I reviewed the nurse practitioner's note and agree with the documented findings and plan of care. Lung sounds are positive for bibasilar crackles. The findings and the impression was discussed with the patient. I attest to the documentation by the nurse practitioner. Time with Patient: Less than 30
== END 2017-07-04 13:15 | disposition home health service (06) | DRG 190 ==
LOC: EC 15:25 → 5MS5E 17:13
PROVIDERS: ADMIT Family Medicine; ATTEND Family Medicine
DX: J44.0 Chronic obstructive pulmonary disease with (acute) lower respiratory infection (principal); J18.9 Pneumonia, unspecified organism; I25.110 Atherosclerotic heart disease of native coronary artery with unstable angina pectoris; I69.354 Hemiplegia and hemiparesis following cerebral infarction affecting left non-dominant side; N32.89 Other specified disorders of bladder; J44.1 Chronic obstructive pulmonary disease with (acute) exacerbation; E78.00 Pure hypercholesterolemia, unspecified; F32.9 Major depressive disorder, single episode, unspecified; F41.9 Anxiety disorder, unspecified; R09.02 Hypoxemia; R06.03 Acute respiratory distress; M19.90 Unspecified osteoarthritis, unspecified site; N32.81 Overactive bladder; I10 Essential (primary) hypertension; I25.2 Old myocardial infarction; Z87.891 Personal history of nicotine dependence; Z82.49 Family history of ischemic heart disease and other diseases of the circulatory system; Z79.899 Other long term (current) drug therapy; Z79.82 Long term (current) use of aspirin
CPT/HCPCS: 36415; 71020; 80053; 83036; 83605; 83735; 83880; 85025; 87040; 87502; 93005; 94640; 94760; 96365; 99285

== ENCOUNTER 2019-09-02 14:35 | Emergency (ER) | payer MEDICARE, OTHER ==
[2019-09-02 14:56] VITALS: RESP 20; TEMP 97.7
[2019-09-02] MEDS ORDERED: SODIUM CHLORIDE 0.9% 500 ML 500 ML IV STA (15:08)
--- NOTE | 2019-09-02 15:14 | ED ---
General Adult HPI - General Chief complaint: Upper Respiratory Infection Stated complaint: flu like symptoms x1 wk Time Seen by Provider: 09/02/19 14:44 Source: patient, RN notes reviewed Mode of arrival: EMS Limitations: no limitations - History of Present Illness Initial comments: 63-year-old male with a past medical history of asthma, COPD former smoker, CVA with left-sided paralysis, hyperlipidemia, hypertension presents to the emergency department for a chief of cough. Patient states that he has had a cough for about a week. No chest pain at baseline states when he coughs it is painful. Patient does have pain when you palpate the chest.. No shortness of breath. Pt did not want to come in today by his hogshead liner thought it was a good idea for him to be evaluated. Patient lives in an assisted living facility.Patient has no other complaints at this time including shortness of breath, chest pain, abdominal pain, nausea or vomiting, headache, or visual changes. - Related Data Home Medications Medication Instructions Recorded Confirmed Aspirin 81 mg PO QAM 05/23/14 06/30/17 Multivitamins, Thera [Multivitamin 1 tab PO QAM 05/23/14 06/30/17 (formulary)] Atorvastatin Calcium [Lipitor] 80 mg PO HS 10/10/14 06/30/17 Cetirizine HCl [Zyrtec] 10 mg PO QAM 10/10/14 06/30/17 Oxybutynin Chloride [Ditropan] 5 mg PO QID 10/10/14 06/30/17 Metoprolol Tartrate [Lopressor] 50 mg PO BID 01/03/16 06/30/17 Nortriptyline [Pamelor] 20 mg PO HS 01/03/16 06/30/17 FLUoxetine HCL [PROzac] 10 mg PO DAILY 06/30/17 06/30/17 Gabapentin [Neurontin] 400 mg PO TID 06/30/17 06/30/17 Melatonin 3 mg PO HS 06/30/17 06/30/17 QUEtiapine [SEROquel] 25 mg PO HS 06/30/17 06/30/17 Zolpidem [Ambien] 10 mg PO HS PRN 06/30/17 06/30/17 Previous Rx's Medication Instructions Recorded Levofloxacin [Levaquin] 500 mg PO DAILY 7 Days #7 tab 07/04/17 predniSONE 10 mg PO DAILY 12 Days #24 tab 07/04/17 Azithromycin [Zithromax Z-pack] 250 mg PO DIRECTED #6 tab 09/02/19 predniSONE 50 mg PO DAILY #5 tablet 09/02/19 Allergies Allergy/AdvReac Type Severity Reaction Status Date / Time No Known Allergies Allergy Verified 06/30/17 15:36 Review of Systems ROS Statement: Those systems with pertinent positive or pertinent negative responses have been documented in the HPI. ROS Other: All systems not noted in ROS Statement are negative. Past Medical History Past Medical History: Asthma, COPD, CVA/TIA, Hyperlipidemia, Hypertension, Myocardial Infarction (OR) Additional Past Medical History / Comment(s): OVERACTIVE BLADDER,WEARS A BRIEF. "MASSIVE STROKE AFFECTED NON DOMINANT LT SIDE-WEARS LT LEG BRACE. ABLE TO TRANSFER SELF FROM BED TO CHAIR BUT NOT AMBULATE BY SELF. 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 BUT AFTER ABOUT 10 STEPS GETS LEG CRAMPS" Last Myocardial Infarction Date:: 1986 History of Any Multi-Drug Resistant Organisms: None Reported Past Surgical History: Heart Catheterization, Orthopedic Surgery Additional Past Surgical History / Comment(s): D/T BRAIN SWELLING AFTER MASSIVE STROKE PT STATED THEY TOOK RT SIDE OF SKULL OFF AND PLACED IN RT SIDE OF ABD TO KEEP IT VIABLE UNTIL THEY COULD PUT IT BACK. OTHER HX" SEVERAL HEART CATHS NO S TENTS, JOE KNEE SX-CARTILAGE REMOVED. Past Anesthesia/Blood Transfusion Reactions: No Reported Reaction Past Psychological History: No Psychological Hx Reported Smoking Status: Former smoker Past Alcohol Use History: None Reported Past Drug Use History: None Reported - Past Family History Father History Unknown: Yes Mother Family Medical History: Hyperlipidemia, Hypertension, Thyroid Disorder General Exam Limitations: no limitations General appearance: alert, in no apparent distress Head exam: Present: atraumatic, normocephalic, normal inspection Eye exam: Present: normal appearance, PERRL, EOMI. Absent: scleral icterus, conjunctival injection, periorbital swelling ENT exam: Present: normal exam, normal oropharynx, mucous membranes moist, TM's normal bilaterally, normal external ear exam Neck exam: Present: normal inspection, full ROM. Absent: tenderness, meningismus, lymphadenopathy Respiratory exam: Present: normal lung sounds bilaterally, chest wall tenderness (Patient does have anterior chest wall tenderness). Absent: respiratory distress, wheezes (no Wheezing noted), rales, rhonchi, stridor Cardiovascular Exam: Present: regular rate, normal rhythm, normal heart sounds. Absent: systolic murmur, diastolic murmur, rubs, gallop, clicks GI/Abdominal exam: Present: soft Neurological exam: Present: alert, oriented X3 Course Vital Signs 09/02/19 14:37 Temperature 97.7 F Pulse Rate 71 Respiratory 20 Rate Blood Pressure 123/87 O2 Sat by Pulse 97 Oximetry EKG Findings - EKG Comments: EKG Findings:: NSR, vent rate 66, Pr int 198, QRS duration 90, QTc 467 Medical Decision Making - Medical Decision Making 63-year-old male presents for cough congestion. Vitals are stable. No respiratory distress. He is lying back in bed resting comfortably. CBC CMP unremarkable. I did repeat the potassium as it was hemolyzed. Troponin is negative. EKG compared to previous EKG from June 2017 and is unremarkable as well. Chest x-ray shows no suspicious acute infiltrate. Influenza is negative. I discussed the patient that at the site he does not have pneumonia or the flu. Patient prefers to go home rather than be admitted to the hospital. Patient has inhalers at home. He will be prescribed and appendix and steroids however as discussed previously lungs are clear to auscultation. He will follow up with primary care in 1-2 days. - Lab Data Result diagrams: 09/02/19 15:30 09/02/19 16:30 Lab Results 09/02/19 09/02/19 09/02/19 Range/Units 15:30 15:30 15:30 WBC 9.3 (3.8-10.6) k/uL RBC 4.70 (4.30-5.90) m/uL Hgb 13.1 (13.0-17.5) gm/dL Hct 41.7 (39.0-53.0) % MCV 88.8 (80.0-100.0) fL MCH 27.9 (25.0-35.0) pg MCHC 31.4 (31.0-37.0) g/dL RDW 14.0 (11.5-15.5) % Plt Count 258 (150-450) k/uL Neutrophils % 50 % Lymphocytes % 38 % Monocytes % 5 % Eosinophils % 3 % Basophils % 1 % Neutrophils # 4.6 (1.3-7.7) k/uL Lymphocytes # 3.5 (1.0-4.8) k/uL Monocytes # 0.5 (0-1.0) k/uL Eosinophils # 0.3 (0-0.7) k/uL Basophils # 0.1 (0-0.2) k/uL Sodium 141 (137-145) mmol/L Potassium 6.0 H (3.5-5.1) mmol/L Chloride 112 H (98-107) mmol/L Carbon Dioxide 23 (22-30) mmol/L Anion Gap 6 mmol/L BUN 10 (9-20) mg/dL Creatinine 0.78 (0.66-1.25) mg/dL Est GFR (CKD-EPI)AfAm >90 (>60 ml/min/1.73 sqM) Est GFR (CKD-EPI)NonAf >90 (>60 ml/min/1.73 sqM) Glucose 83 (74-99) mg/dL Calcium 8.7 (8.4-10.2) mg/dL Total Bilirubin 0.7 (0.2-1.3) mg/dL AST 33 (17-59) U/L ALT 21 (4-49) U/L Alkaline Phosphatase 92 (38-126) U/L Troponin I (0.000-0.034) ng/mL Total Protein 7.3 (6.3-8.2) g/dL Albumin 3.8 (3.5-5.0) g/dL Influenza Type A RNA Not Detected (Not Detectd) Influenza Type B (PCR) Not Detected (Not Detectd) 09/02/19 09/02/19 Range/Units 15:30 16:30 WBC (3.8-10.6) k/uL RBC (4.30-5.90) m/uL Hgb (13.0-17.5) gm/dL Hct (39.0-53.0) % MCV (80.0-100.0) fL MCH (25.0-35.0) pg MCHC (31.0-37.0) g/dL RDW (11.5-15.5) % Plt Count (150-450) k/uL Neutrophils % % Lymphocytes % % Monocytes % % Eosinophils % % Basophils % % Neutrophils # (1.3-7.7) k/uL Lymphocytes # (1.0-4.8) k/uL Monocytes # (0-1.0) k/uL Eosinophils # (0-0.7) k/uL Basophils # (0-0.2) k/uL Sodium (137-145) mmol/L Potassium 5.0 (3.5-5.1) mmol/L Chloride (98-107) mmol/L Carbon Dioxide (22-30) mmol/L Anion Gap mmol/L BUN (9-20) mg/dL Creatinine (0.66-1.25) mg/dL Est GFR (CKD-EPI)AfAm (>60 ml/min/1.73 sqM) Est GFR (CKD-EPI)NonAf (>60 ml/min/1.73 sqM) Glucose (74-99) mg/dL Calcium (8.4-10.2) mg/dL Total Bilirubin (0.2-1.3) mg/dL AST (17-59) U/L ALT (4-49) U/L Alkaline Phosphatase (38-126) U/L Troponin I <0.012 (0.000-0.034) ng/mL Total Protein (6.3-8.2) g/dL Albumin (3.5-5.0) g/dL Influenza Type A RNA (Not Detectd) Influenza Type B (PCR) (Not Detectd) Disposition Clinical Impression: Cough Disposition: HOME SELF-CARE Condition: Good Instructions (If sedation given, give patient instructions): Upper Respiratory Infection (ED) Additional Instructions: Please take antibiotic and steroid as directed. Continue to use inhaler. Follow-up with primary care in 1-2 days. Return to the emergency department if you have any worsening symptoms. Prescriptions were prescribed to Scott Kumar. Prescriptions: predniSONE 50 mg PO DAILY #5 tablet Azithromycin [Zithromax Z-pack] 250 mg PO DIRECTED #6 tab Is patient prescribed a controlled substance at d/c from ED?: No Referrals: [facility] [Primary Care Provider] - 1-2 days Time of Disposition: 17:46
--- NOTE | 2019-09-02 15:59 | XR ---
EXAMINATION TYPE: XR chest 2V DATE OF EXAM: 09/02/2019 COMPARISON: Chest x-ray July 03, 2017. CTA chest January 03, 2016. HISTORY: Cough and congestion. TECHNIQUE: Frontal and lateral views of the chest are obtained. FINDINGS: Elevated left hemidiaphragm is redemonstrated. There is no suspicious focal air space opaci ty, pleural effusion, or pneumothorax seen. The cardiac silhouette size is stable and within normal limits. The osseous structures are demineralized. IMPRESSION: No suspicious new acute infiltrate.
[2019-09-02 16:06] LABS: Basophils # (A) 0.1 k/uL (0-0.2); Basophils % (A) 1 %; Eosinophils # (A) 0.3 k/uL (0-0.7); Eosinophils % (A) 3 %; HCT 41.7 % (39.0-53.0); HGB 13.1 gm/dL (13.0-17.5); Lymphocytes # (A) 3.5 k/uL (1.0-4.8); Lymphocytes % (A) 38 %; MCH 27.9 pg (25.0-35.0); MCHC 31.4 g/dL (31.0-37.0); MCV 88.8 fL (80.0-100.0); Monocytes # (A) 0.5 k/uL (0-1.0); Monocytes % (A) 5 %; Neutrophils # (A) 4.6 k/uL (1.3-7.7); Neutrophils % (A) 50 %; Platelet Count 258 k/uL (150-450); WBC 9.3 k/uL (3.8-10.6)
[2019-09-02 16:17] LABS: ALT 21 U/L (4-49); AST 33 U/L (17-59); African American GFR (CKD) >90 (>60 ml/min/1.73 sqM); Albumin 3.8 g/dL (3.5-5.0); Alkaline Phosphatase 92 U/L (38-126); Anion Gap 6 mmol/L; Blood Urea Nitrogen 10 mg/dL (9-20); Calcium 8.7 mg/dL (8.4-10.2); Carbon Dioxide 23 mmol/L (22-30); Chloride 112 mmol/L (98-107); Glucose 83 mg/dL (74-99); Non-African American GFR(CKD) >90 (>60 ml/min/1.73 sqM); Sodium 141 mmol/L (137-145); Total Bilirubin 0.7 mg/dL (0.2-1.3); Total Protein 7.3 g/dL (6.3-8.2)
[2019-09-02 17:59] VITALS: BP 125/88; PULSE 70
== END 2019-09-02 17:56 | disposition home or self-care (01) ==
LOC: EC 14:35 → SUPCPDRO 14:35 → EC 17:56
DX: R05 Cough (principal); I10 Essential (primary) hypertension; E78.5 Hyperlipidemia, unspecified; I25.2 Old myocardial infarction; Z79.82 Long term (current) use of aspirin; Z79.899 Other long term (current) drug therapy; Z87.891 Personal history of nicotine dependence; Z86.73 Personal history of transient ischemic attack (TIA), and cerebral infarction without residual deficits
CPT/HCPCS: 36415; 71046; 80053; 84132; 84484; 85025; 87502; 93005; 96360; 99284

== ENCOUNTER → 2022-09-02 | Outpatient (CLI) | payer OTHER ==
--- NOTE | 2022-09-03 08:03 | CTL ---
EXAMINATION TYPE: CT Low Dose Lung DATE OF EXAM: 09/02/2022 5:00 PM CLINICAL INDICATION:Male, 66 years old with history of Z87.891 PERSONAL HISTORY OF NICOTINE DEPENDENC E; h/o personal tobacco use , history of tobacco use. COMPARISON: 01/03/2016, radiograph 09/02/2019 TECHNIQUE: Multiple axial non-contrast scans were obtained from approximately the lung apices through the upper abdomen. Coronal and sagittal reformatted images were obtained. Low dose technique was uti lized. CT DLP: 91.2 mGycm, Automated exposure control for dose reduction was used. CT Contrast: Contrast used: None Oral contrast used: None FINDINGS: ======== Lack of intravenous contrast and low dose technique limits the evaluation of the vascular and soft ti ssue structures. LUNGS: Centrilobular and paraseptal emphysema changes are present. No evidence of focal consolidation , pneumothorax or pleural effusion. Nodules: RUL: None. RML: None. RLL: None. GIFTY: None. LLL: None. AIRWAY: Patent and unremarkable. HEART: Size within normal limits. Moderate to severe coronary artery atherosclerosis. MEDIASTINUM: No gross evidence of adenopathy. VASCULATURE: No aortic aneurysm. Atherosclerosis of the arterial vasculature MUSCULOSKELETAL: No acute osseous abnormalities, multilevel disc degeneration changes throughout the spine SOFT TISSUES/LYMPH NODES: Unremarkable. LOWER NECK: No significant findings. UPPER ABDOMEN: No significant findings. IMPRESSION: 1. No clinically significant pulmonary nodules. 2. Mild to moderate centrilobular emphysema. 3. Moderate to severe coronary artery atherosclerosis. CT LUNG RAD AND CT CHEST RECOMMENDATION: Lung-Rad 1 Negative: Continue annual screening with LDCT in 12 months. S Modifier (other clinically significant findings): Moderate to severe coronary artery atherosclerosi s. Recommend smoking cessation (if current smoker), or continuation of smoking cessation (if prior smoke r). Annual screening for lung cancer with low-dose computed tomography is recommended in adults ages 55 to 77 years who have a 30 pack-year smoking history and currently smoke or have quit within the pa st 15 years. Screening should be discontinued once a person has not smoked for 15 years or develops a health problem that substantially limits life expectancy or the ability or willingness to have curat jeffrey lung surgery. Lung rads 2021 [email or web address]
== END | disposition home or self-care (01) ==
LOC: RADCTMAIN 16:18
DX: Z12.2 Encounter for screening for malignant neoplasm of respiratory organs (principal); J43.2 Centrilobular emphysema; I25.10 Atherosclerotic heart disease of native coronary artery without angina pectoris; Z87.891 Personal history of nicotine dependence
CPT/HCPCS: 71271

== ENCOUNTER → 2023-01-17 | Outpatient (CLI) | payer OTHER ==
--- NOTE | 2023-01-17 12:14 | FL ---
EXAMINATION TYPE: FL barium swallow w video DATE OF EXAM: 01/17/2023 MODIFIED SWALLOW / DEGLUTITION STUDY CLINICAL HISTORY: Dysphagia. TECHNIQUE: Deglutition study is performed utilizing thin liquid barium, pudding. Total dose area pr oduct (DAP) in uGy*m?, mGy*cm? (or similar): 15 seconds of fluoroscopy COMPARISON: None. FINDINGS: The oral and pharyngeal phases show satisfactory initiation and propagation with all modali ties tested. Normal mastication is seen with solid modalities tested. There is was evidence of mariscal sient single swallow of thin barium. No evidence of Aspiration with any modality tested. No signific ant pharyngeal residue was appreciated. IMPRESSION: 1. Single episode of transient saturation. No aspiration
== END | disposition home or self-care (01) ==
LOC: RADFLMAIN 11:21
PROVIDERS: ATTEND Internal Medicine
DX: M26.59 Other dentofacial functional abnormalities (principal); R13.10 Dysphagia, unspecified
CPT/HCPCS: 74230

== ENCOUNTER → 2023-07-26 | Outpatient (CLI) | payer OTHER ==
--- NOTE | 2023-07-26 10:59 | P.PAINPG ---
PQRS Measure Charge Sheet Comment: HISTORY OF PRESENT ILLNESS: A 67 yr old wheelchair bound male w caregiver at side as a referral from the [facility] presents today w severe and chronic L LBP x 1 yr secondary to DDD, spondylosis and facet arthropathy without myelopathy for evaluation. Pt states pain level is provoked at 7/10 in intensity, constant, localized in the L lower lumbar spine, predominantly axial, sharp in character w shooting pain towards the L hip and groin. Pain is provoked by sitting for periods of 15 min or more. Pain is alleviated slightly by medications (Lyrica 100mg #120), homecare PT until Jan 2023, physician guided home stretches daily w the assistance of his caregiver since Jan 2023, heat, repositioning and rest . Oswestry axial pain score at . PMH: OA, Asthma, COPD, CVA, Hyperlipidemia, HTN, DE (1986), OAB, BPH, Vitamin D Deficiency PSH: Heart Catheterization x3, "Surgery for Brain Swelling", BL Knee A rthroscopy, Colonoscopy (2013), MDD SH: 40 pack/ yr tobacco use history, No ETOH abuse, No illicit drug use. Retired . FH: Mo- HTN, Hyperlipidemia, Hypothyroidism. Fa- Unknown. Sis- CVA x2. All: See list Meds: See list REVIEW OF ORGAN SYSTEMS: CONSTITUTIONAL: No fevers or chills. No recent weight loss. NEUROLOGICAL: + numbness and tingling along the distal extremities. No seizure disorders or headaches. MUSCULOSKELETAL: + pain PSYCHIATRIC: Denies current depression or suicidal thoughts. Physical Examinations : Constitutional : Cooperative , not in acute distress . Neurologic : Cranial nerve II to XII intact. No focal neurological deficits. Psychiatric : alert & oriented x 3. Matching mood & appropriate affect. Judgment & insight intact. Musculoskeletal : Cervical Spine Motor strength in the deltoid and biceps: Normal right side. Normal Left side Motor strength biceps and the wrist extensors: Normal right side . Normal left side Motor strength in the triceps muscle: Normal right side. Normal left side Deep tendon reflexes: Normal at the biceps. Normal at Brachioradialis. Normal at triceps Vertebral body tenderness to deep palpation over Cervical facet loading test: positive bilaterally Spurling test: positive bilaterally Neck distraction test: positive bilaterally Grace sign: positive bilaterally Lumbar spine Motor strength lower extremities ,thigh and legs 5/5 Right side , 5/5 Left side Deep tendon reflexes : Normal Knee Jerk. Normal Ankle Jerk Vertebral body tenderness over Bernabe Test positive Lumbar facet Loading Test: positive Right / positive Left Range of motion of the lumbar spine Flexion 30 degrees, extension 10 degrees Straight Leg Raise test: Left/ Right positive at degree Marty test: positive right / positive left. Severe tenderness over the Sacroiliac joint on the Right / Left sides Gaenslen test: positive bilaterally Seated flexion test: positive bilaterally. Sacral spine : Severe tenderness over the Sacroiliac joint: right side / left side Range of motion: Flexion of the lumbar spine <60 degrees Range of motion: Extension of the lumbar spine <20 degrees Gaenslen's Test positive on L Marty test: positive right side / left side Thigh Thrust Test L positive Sacral Thrust Test Assessment/ Plan : L Sacroiliitis, Polyneuropathy Recommendation of L SI injection. May need a series of injections for optimal pain relief. Risks, benefits of procedure discussed and patient verbalized understanding. Admits to anti- coagulant use or medical history of diabetes. Protocol for discontinuation/ continuation of medications lauren procedure discussed. Recommendation of medication management. Lyrica 150mg #120 w 1 RF. Opiate/ narcotic agreement signed 07/26/23. Will terminate agreement w [facility] as his referral is for Neuropathy. Pt and caregiver at side acknowledged understanding. Use, side effects, adverse reactions and safe storage discussed. All questions answered. I have spent greater than 30 minutes on patient care today. Dr Macario was available by phone for the evaluation of this patient. The time was used to review the medical records including relevant urine studies and Prescription history (MAPs), review of the available imaging, evaluation and examination of the patient, coordination of care with the medical staff and if applicable referring physicians, as well as creation of the medical record PQRS Narrative: Smoking Status Former smoker Home Medications: Ambulatory Orders Aspirin 81 mg PO QAM 05/23/14 Multivitamins, Thera [Multivitamin (formulary)] 1 tab PO QAM 05/23/14 Atorvastatin Calcium [Lipitor] 80 mg PO HS 10/10/14 Cetirizine HCl [Zyrtec] 10 mg PO QAM 10/10/14 oxyBUTYnin chloride [Ditropan] 5 mg PO QID 10/10/14 Metoprolol Tartrate [Lopressor] 50 mg PO BID 01/03/16 Nortriptyline [Pamelor] 20 mg PO HS 01/03/16 FLUoxetine HCL [PROzac] 10 mg PO DAILY 06/30/17 Melatonin 3 mg PO HS 06/30/17 QUEtiapine [SEROquel] 25 mg PO HS 06/30/17 Zolpidem [Ambien] 10 mg PO HS PRN 06/30/17 Levofloxacin [Levaquin] 500 mg PO DAILY 7 Days #7 tab 07/04/17 predniSONE 10 mg PO DAILY 12 Days #24 tab 07/04/17 Azithromycin [Zithromax Z-pack (6 tabs)] 250 mg PO DIRECTED #6 tab 09/02/19 predniSONE 50 mg PO DAILY #5 tablet 09/02/19 HYDROcodone/APAP 5-325MG [[place] 5-325] 1 tab PO Q6HR PRN 3 Days #8 tab 05/24/23 Pregabalin [Lyrica] 150 mg PO QID 30 Days #120 capsule 07/26/23 Controlled Substance Measures - Controlled Substance Measures Is patient prescribed a controlled substance at discharge?: Yes When asked, does pt state using other controlled substances?: No If prescribed controlled substance>3 days was MAPS reviewed?: Yes If Rx opioid, was Start Talking consent form obtained?: Yes Was information provided regarding opioid addiction?: Yes
[2023-07-26 12:40] VITALS: BP 106/60; PULSE 63; RESP 15; TEMP 98.6
== END ==
LOC: PNWHC3 10:08
PROVIDERS: ATTEND Specialist
DX: G89.29 Other chronic pain (principal); G62.9 Polyneuropathy, unspecified; M46.1 Sacroiliitis, not elsewhere classified; M19.90 Unspecified osteoarthritis, unspecified site; J44.89 Other specified chronic obstructive pulmonary disease; E78.5 Hyperlipidemia, unspecified; I10 Essential (primary) hypertension; I25.2 Old myocardial infarction; N40.0 Benign prostatic hyperplasia without lower urinary tract symptoms; Z87.19 Personal history of other diseases of the digestive system; Z86.73 Personal history of transient ischemic attack (TIA), and cerebral infarction without residual deficits; Z87.891 Personal history of nicotine dependence; Z79.82 Long term (current) use of aspirin; Z79.899 Other long term (current) drug therapy
CPT/HCPCS: 99211

== ENCOUNTER 2023-08-08 09:28 | Day surgery (SDC) | payer OTHER ==
[~2023-08-08 09:28] MED LIST: LACTATED RINGERS 1,000 ML IV SCH
[2023-08-08 09:59] VITALS: RESP 16; TEMP 96.9
[2023-08-08] MEDS ORDERED: ROPIVACAINE 5MG/ML 20ML VIAL ONE (10:34)
[2023-08-08] MEDS ORDERED: methylPREDNISolone ACETATE 40 MG/ML 1 ML VIAL ONE (10:34)
--- NOTE | 2023-08-08 11:08 | FL ---
EXAMINATION TYPE: FL guided pain mgmt statistic DATE OF EXAM: 08/08/2023 HISTORY: Fluoroscopy time Total dose area product (DAP) in uGy*m?, mGy*cm? (or similar): 0.59526 IMPRESSION: 1. Fluoroscopy time.
[2023-08-08 11:13] VITALS: BP 135/75; PULSE 58
--- NOTE | 2023-08-08 11:47 | P.PCN ---
Description of Procedure: Preprocedure diagnosis. Sacroiliac joint arthropathy. Postprocedure diagnosis. As above. Procedure done. Left sacroiliac joint injection with local anesthetics and steroid under fluoroscopic guidance. Anesthesia. Local anesthetic infiltration. Continuous EKG, pulse ox, blood pressure, and verbal communication was maintained with the patient in OR. Blood loss. Minimal. Indication. Sacroiliac joint arthropathy. Discussed the procedure, alternatives, complications which may include infection,bleeding, nerve damage, aggravation of pain which could be permanent. Patient understands and questions were answered. Procedure note. After getting consent patient in OR in prone position. Back prepped with chlorhexidine and draped in sterile manner. After injecting 10 mL of 1% lidocaine subcutaneously, a 22-gauge spinal needle was introduced under tunnel vision of the fluoroscope in the lower and posterior one third of left sacroiliac joint. After needle position confirmation by AP and crosstable lateral view, After repeat negative aspiration, 2.5 mL solution was injected which consists of 1.5 ml of 0.5% Ropivacaine mixed with 1 mL of 40 mg Depo- Medrol. After the procedure needles were taken out. Bandage applied. Disposition. Patient tolerated the procedure well. No complication. Patient was discharged home in stable condition.
== END 2023-08-08 11:24 | disposition home or self-care (01) ==
LOC: ORPAIN 09:28
PROVIDERS: ATTEND Pain Medicine Interventional Pain Medicine
DX: M46.1 Sacroiliitis, not elsewhere classified (principal)
CPT/HCPCS: 27096; J1030; J2795

== ENCOUNTER → 2023-10-02 | Outpatient (CLI) | payer OTHER ==
[2023-10-02 08:03] VITALS: BP 129/63; PULSE 63; RESP 16; TEMP 98
--- NOTE | 2023-10-02 14:35 | P.PAINPG ---
PQRS Measure Charge Sheet Comment: HISTORY OF PRESENT ILLNESS: A 67 yr old wheelchair bound male w caregiver at side presents today w severe and chronic L LBP x 1 yr secondary to DDD, spondylosis and facet arthropathy without myelopathy for evaluation s/p L SI injection #1. Pt states he experienced 0 % pain relief x 3 wks s/p procedure. Pt states pain level is provoked at 5/10 in intensity, constant, localized in the L lower lumbar spine, predominantly axial, sharp in character w shooting pain towards the L hip and back of the LEs. Pain is provoked by sitting for periods of 15 min or more. Pain is alleviated slightly by medications, homecare PT until Jan 2023, physician guided home stretches daily w the assistance of his caregiver since Jan 2023, heat, repositioning and rest . Oswestry axial pain score at 34. Initial procedures include L SI x1 Medications include Lyrica 100mg #120 REVIEW OF ORGAN SYSTEMS: CONSTITUTIONAL: No fevers or chills. No recent weight loss. NEUROLOGICAL: + numbness and tingling along the distal extremities. No seizure disorders or headaches. MUSCULOSKELETAL: + pain PSYCHIATRIC: Denies current depression or suicidal thoughts. Physical Examinations : Constitutional : Cooperative , not in acute distress . Neurologic : Cranial nerve II to XII intact. No focal neurological deficits. Psychiatric : alert & oriented x 3. Matching mood & appropriate affect. Judgment & insight intact. Musculoskeletal : Cervical Spine Motor strength in the deltoid and biceps: Normal right side. Normal Left side Motor strength biceps and the wrist extensors: Normal right side . Normal left side Motor strength in the triceps muscle: Normal right side. Normal left side Deep tendon reflexes: Normal at the biceps. Normal at Brachioradialis. Normal at triceps Vertebral body tenderness to deep palpation over Cervical facet loading test: positive bilaterally Spurling test: positive bilaterally Neck distraction test: positive bilaterally Grace sign: positive bilaterally Lumbar spine Motor strength lower extremities ,thigh and legs 5/5 Right side , 5/5 Left side Deep tendon reflexes : Normal Knee Jerk. Normal Ankle Jerk Vertebral body tenderness over Bernabe Test positive Lumbar facet Loading Test: positive Right / positive Left Range of motion of the lumbar spine Flexion 30 degrees, extension 10 degrees Straight Leg Raise test: Left/ Right positive at degree Marty test: positive right / positive left. Severe tenderness over the Sacroiliac joint on the Right / Left sides Gaenslen test: positive bilaterally Seated flexion test: positive bilaterally. Sacral spine : Severe tenderness over the Sacroiliac joint: right side / left side Range of motion: Flexion of the lumbar spine <60 degrees Range of motion: Extension of the lumbar spine <20 degrees Gaenslen's Test positive on L Marty test: positive right side / left side Thigh Thrust Test L positive Sacral Thrust Test Assessment/ Plan : L Sacroiliitis, Polyneuropathy Recommendation of medication management. Lyrica 150mg #120 w 1 RF. Will check UDS at next visit. Opiate/ narcotic agreement signed 07/26/23. Pt and caregiver at side acknowledged understanding. Use, side effects, adverse reactions and safe storage discussed. All questions answered. I have spent greater than 30 minutes on patient care today. Dr Macario was available by phone for the evaluation of this patient. The time was used to review the medical records including relevant urine studies and Prescription history (MAPs), review of the available imaging, evaluation and examination of the patient, coordination of care with the medical staff and if applicable referring physicians, as well as creation of the medical record PQRS Narrative: Smoking Status Former smoker Hx Alcohol Use (MH) No Home Medications: Ambulatory Orders Aspirin 81 mg PO QAM 05/23/14 Multivitamins, Thera [Multivitamin (formulary)] 1 tab PO QAM 05/23/14 Atorvastatin Calcium [Lipitor] 80 mg PO HS 10/10/14 Cetirizine HCl [Zyrtec] 10 mg PO QAM PRN 10/10/14 oxyBUTYnin chloride [Ditropan] 20 mg PO DAILY 10/10/14 Metoprolol Tartrate [Lopressor] 50 mg PO BID 01/03/16 Nortriptyline [Pamelor] 20 mg PO HS 01/03/16 FLUoxetine HCL [PROzac] 20 mg PO DAILY 06/30/17 Docusate [Colace] 100 mg PO DAILY 08/04/23 Melatonin 10 mg PO HS PRN 08/04/23 Tamsulosin [Flomax] 0.4 mg PO DAILY 08/04/23 methocarbamoL 750 mg PO QID 08/04/23 Pregabalin [Lyrica] 150 mg PO QID 30 Days #120 capsule 10/02/23 Controlled Substance Measures - Controlled Substance Measures Is patient prescribed a controlled substance at discharge?: No
== END ==
LOC: PNWHC3 07:35
PROVIDERS: ATTEND Specialist
DX: M46.1 Sacroiliitis, not elsewhere classified (principal); G62.9 Polyneuropathy, unspecified; Z87.891 Personal history of nicotine dependence; Z79.82 Long term (current) use of aspirin
CPT/HCPCS: 99211

== ENCOUNTER → 2023-12-13 | Outpatient (CLI) | payer OTHER, MEDICARE ==
[2023-12-14 08:40] LABS: Serum Amphetamine Negative; Serum Barbiturates Negative; Serum Benzodiazepine Negative; Serum Cocaine Negative; Serum Methadone Negative; Serum Opiates Negative; Serum Phencyclidine Negative; Serum Propoxyphene Negative; Serum THC (Cannabis) Negative
== END | disposition home or self-care (01) ==
LOC: LABWHC1 10:42
PROVIDERS: ATTEND Physician Assistant Medical
DX: Z02.83 Encounter for blood-alcohol and blood-drug test (principal)
CPT/HCPCS: 36415; 80307

== ENCOUNTER → 2023-12-13 | Outpatient (CLI) | payer OTHER ==
[2023-12-13 11:01] VITALS: BP 121/86; PULSE 66; RESP 16; TEMP 98.6
--- NOTE | 2023-12-13 14:35 | P.PAINPG ---
PQRS Measure Charge Sheet Comment: HISTORY OF PRESENT ILLNESS: A 67 yr old wheelchair bound male w caregiver at side presents today w severe and chronic L LBP x 1 yr secondary to DDD, spondylosis and facet arthropathy without myelopathy for medication refills. Pt states pain level is provoked at 8 /10 in intensity, constant, localized in the L lower lumbar spine, predominantly axial, sharp in character w shooting pain towards the L hip and back of the LEs. Pain is provoked by sitting for periods of 15 min or more. Pain is alleviated slightly by medications, homecare PT until Jan 2023, physician guided home stretches daily w the assistance of his caregiver since Jan 2023, heat, repositioning and rest . Oswestry axial pain score at 33. Initial procedures include L SI x1 Medications include Lyrica 100mg #120 REVIEW OF ORGAN SYSTEMS: CONSTITUTIONAL: No fevers or chills. No recent weight loss. NEUROLOGICAL: + numbness and tingling along the distal extremities. No seizure disorders or headaches. MUSCULOSKELETAL: + pain PSYCHIATRIC: Denies current depression or suicidal thoughts. Physical Examinations : Constitutional : Cooperative , not in acute distress . Neurologic : Cranial nerve II to XII intact. No focal neurological deficits. Psychiatric : alert & oriented x 3. Matching mood & appropriate affect. Judgment & insight intact. Musculoskeletal : Cervical Spine Motor strength in the deltoid and biceps: Normal right side. Normal Left side Motor strength biceps and the wrist extensors: Normal right side . Normal left side Motor strength in the triceps muscle: Normal right side. Normal left side Deep tendon reflexes: Normal at the biceps. Normal at Brachioradialis. Normal at triceps Vertebral body tenderness to deep palpation over Cervical facet loading test: positive bilaterally Spurling test: positive bilaterally Neck distraction test: positive bilaterally Grace sign: positive bilaterally Lumbar spine Motor strength lower extremities ,thigh and legs 5/5 Right side , 5/5 Left side Deep tendon reflexes : Normal Knee Jerk. Normal Ankle Jerk Vertebral body tenderness over Bernabe Test positive Lumbar facet Loading Test: positive Right / positive Left Range of motion of the lumbar spine Flexion 30 degrees, extension 10 degrees Straight Leg Raise test: Left/ Right positive at degree Marty test: positive right / positive left. Severe tenderness over the Sacroiliac joint on the Right / Left sides Gaenslen test: positive bilaterally Seated flexion test: positive bilate rally. Sacral spine : Severe tenderness over the Sacroiliac joint: right side / left side Range of motion: Flexion of the lumbar spine <60 degrees Range of motion: Extension of the lumbar spine <20 degrees Gaenslen's Test positive on L Marty test: positive right side / left side Thigh Thrust Test L positive Sacral Thrust Test Assessment/ Plan : L Sacroiliitis, Polyneuropathy Recommendation of medication management. Lyrica 150mg #120 w 1 RF. Blood tox screen Z02.83 script today. Opiate/ narcotic agreement signed 07/26/23. Pt and caregiver at side acknowledged understanding. Use, side effects, adverse reactions and safe storage discussed. All questions answered. I have spent greater than 30 minutes on patient care today. Dr Macario was available by phone for the evaluation of this patient. The time was used to review the medical records including relevant urine studies and Prescription history (MAPs), review of the available imaging, evaluation and examination of the patient, coordination of care with the medical staff and if applicable referring physicians, as well as creation of the medical record PQRS Narrative: Smoking Status Former smoker Hx Alcohol Use (MH) No Home Medications: Ambulatory Orders Aspirin 81 mg PO QAM 05/23/14 Multivitamins, Thera [Multivitamin (formulary)] 1 tab PO QAM 05/23/14 Atorvastatin Calcium [Lipitor] 80 mg PO HS 10/10/14 Cetirizine HCl [Zyrtec] 10 mg PO QAM PRN 10/10/14 oxyBUTYnin chloride [Ditropan] 20 mg PO DAILY 10/10/14 Metoprolol Tartrate [Lopressor] 50 mg PO BID 01/03/16 Nortriptyline [Pamelor] 20 mg PO HS 01/03/16 FLUoxetine HCL [PROzac] 20 mg PO DAILY 06/30/17 Docusate [Colace] 100 mg PO DAILY 08/04/23 Melatonin 10 mg PO HS PRN 08/04/23 Tamsulosin [Flomax] 0.4 mg PO DAILY 08/04/23 methocarbamoL 750 mg PO QID 08/04/23 Pregabalin [Lyrica] 150 mg PO QID 30 Days #120 capsule 10/02/23 Controlled Substance Measures - Controlled Substance Measures Is patient prescribed a controlled substance at discharge?: Yes When asked, does pt state using other controlled substances?: No If prescribed controlled substance>3 days was MAPS reviewed?: Yes
== END ==
LOC: PNWHC3 10:03
PROVIDERS: ATTEND Specialist
DX: M96.1 Postlaminectomy syndrome, not elsewhere classified (principal); G62.9 Polyneuropathy, unspecified; G89.29 Other chronic pain; M54.50 Low back pain, unspecified; M51.36 Other intervertebral disc degeneration, lumbar region; M47.816 Spondylosis without myelopathy or radiculopathy, lumbar region; Z87.891 Personal history of nicotine dependence
CPT/HCPCS: 99211

== ENCOUNTER → 2024-02-07 | Outpatient (CLI) | payer MEDICARE, OTHER ==
[2024-02-07 10:04] VITALS: BP 111/73; PULSE 58; RESP 16
--- NOTE | 2024-02-07 14:47 | P.PAINPG ---
PQRS Measure Charge Sheet Comment: HISTORY OF PRESENT ILLNESS: A 68 yr old wheelchair bound male w caregiver at side presents today w severe and chronic L LBP x 1 yr secondary to DDD, spondylosis and facet arthropathy without myelopathy for medication refills. Pt states pain level is provoked at 8 /10 in intensity, constant, localized in the L lower lumbar spine, predominantly axial, sharp in character w shooting pain towards the L hip and back of the LEs. Pain is provoked by sitting for periods of 15 min or more. Pain is alleviated slightly by medications, homecare PT until Jan 2023, physician guided home stretches daily w the assistance of his caregiver since Jan 2023, heat, repositioning and rest . Oswestry axial pain score at 33. Initial procedures include L SI x1 Medications include Lyrica 100mg #120, Ibu REVIEW OF ORGAN SYSTEMS: CONSTITUTIONAL: No fevers or chills. No recent weight loss. NEUROLOGICAL: + numbness and tingling along the distal extremities. No seizure disorders or headaches. MUSCULOSKELETAL: + pain PSYCHIATRIC: Denies current depression or suicidal thoughts. Physical Examinations : Constitutional : Cooperative , not in acute distress . Neurologic : Cranial nerve II to XII intact. No focal neurological deficits. Psychiatric : alert & oriented x 3. Matching mood & appropriate affect. Judgment & insight intact. Musculoskeletal : Cervical Spine Motor strength in the deltoid and biceps: Normal right side. Normal Left side Motor strength biceps and the wrist extensors: Normal right side . Normal left side Motor strength in the triceps muscle: Normal right side. Normal left side Deep tendon reflexes: Normal at the biceps. Normal at Brachioradialis. Normal at triceps Vertebral body tenderness to deep palpation over Cervical facet loading test: positive bilaterally Spurling test: positive bilaterally Neck distraction test: positive bilaterally Grace sign: positive bilaterally Lumbar spine Motor strength lower extremities ,thigh and legs 5/5 Right side , 5/5 Left side Deep tendon reflexes : Normal Knee Jerk. Normal Ankle Jerk Vertebral body tenderness over Bernabe Test positive Lumbar facet Loading Test: positive Right / positive Left Range of motion of the lumbar spine Flexion 30 degrees, extension 10 degrees Straight Leg Raise test: Left/ Right positive at degree Marty test: positive right / positive left. Severe tenderness over the Sacroiliac joint on the Right / Left sides Gaenslen test: positive bilaterally Seated flexion test: positive b ilaterally. Sacral spine : Severe tenderness over the Sacroiliac joint: right side / left side Range of motion: Flexion of the lumbar spine <60 degrees Range of motion: Extension of the lumbar spine <20 degrees Gaenslen's Test positive on L Marty test: positive right side / left side Thigh Thrust Test L positive Sacral Thrust Test Assessment/ Plan : L Sacroiliitis, Polyneuropathy Recommendation of medication management. Lyrica 150mg #120 w 2 RF. Blood tox screen from 12/13/23 reviewed and consistent. Opiate/ narcotic agreement signed 07/26/23. Pt and caregiver at side acknowledged understanding. Use, side effects, adverse reactions and safe storage discussed. All questions answered. I have spent greater than 30 minutes on patient care today. Dr Macario was available by phone for the evaluation of this patient. The time was used to review the medical records including relevant urine studies and Prescription history (MAPs), review of the available imaging, evaluation and examination of the patient, coordination of care with the medical staff and if applicable referring physicians, as well as creation of the medical record PQRS Narrative: Smoking Status Former smoker Hx Alcohol Use (MH) No Home Medications: Ambulatory Orders Aspirin 81 mg PO QAM 05/23/14 Multivitamins, Thera [Multivitamin (formulary)] 1 tab PO QAM 05/23/14 Atorvastatin Calcium [Lipitor] 80 mg PO HS 10/10/14 Cetirizine HCl [Zyrtec] 10 mg PO QAM PRN 10/10/14 oxyBUTYnin chloride [Ditropan] 20 mg PO DAILY 10/10/14 Metoprolol Tartrate [Lopressor] 50 mg PO BID 01/03/16 Nortriptyline [Pamelor] 20 mg PO HS 01/03/16 FLUoxetine HCL [PROzac] 20 mg PO DAILY 06/30/17 Docusate [Colace] 100 mg PO DAILY 08/04/23 Melatonin 10 mg PO HS PRN 08/04/23 Tamsulosin [Flomax] 0.4 mg PO DAILY 08/04/23 methocarbamoL 750 mg PO QID 08/04/23 Pregabalin [Lyrica] 150 mg PO QID 30 Days #120 capsule 02/07/24 Controlled Substance Measures - Controlled Substance Measures Is patient prescribed a controlled substance at discharge?: Yes When asked, does pt state using other controlled substances?: No If prescribed controlled substance>3 days was MAPS reviewed?: Yes
== END ==
LOC: PNWHC3 09:42
PROVIDERS: ATTEND Specialist
DX: M47.816 Spondylosis without myelopathy or radiculopathy, lumbar region (principal); M46.1 Sacroiliitis, not elsewhere classified; G62.9 Polyneuropathy, unspecified; Z87.891 Personal history of nicotine dependence
CPT/HCPCS: 99211

== ENCOUNTER → 2024-08-07 | Outpatient (CLI) | payer MEDICARE ==
[2024-08-07 10:30] VITALS: BP 109/60; PULSE 68; RESP 16
--- NOTE | 2024-08-07 15:20 | P.PAINPG ---
Objective - Vital Signs Vital signs: Intake & Output 08/06/24 08/07/24 08/07/24 18:59 06:59 18:59 Weight 102.058 kg PQRS Measure Charge Sheet Comment: HISTORY OF PRESENT ILLNESS: A 68 yr old wheelchair bound male w caregiver at side presents today w severe and chronic L LBP x 1 yr secondary to radiculoapthy, spondylosis and facet arthropathy without myelopathy for medication refills. Pt states pain level is provoked at 7 /10 in intensity, constant, localized in the L lower lumbar spine, predominantly axial, sharp in character w shooting pain towards the L hip and back of the LEs. Pain is provoked by sitting for periods of 15 min or more. Pain is alleviated slightly by medications, homecare PT until Jan 2023, physician guided home stretches daily w the assistance of his caregiver since Jan 2023, heat, repositioning and rest . Initial procedures include L SI x1 Medications include Lyrica 100mg #120, Ibu REVIEW OF ORGAN SYSTEMS: CONSTITUTIONAL: No fevers or chills. No recent weight loss. NEUROLOGICAL: + numbness and tingling along the distal extremities. No seizure disorders or headaches. MUSCULOSKELETAL: + pain PSYCHIATRIC: Denies current depression or suicidal thoughts. Physical Examinations : Constitutional : Cooperative , not in acute distress . Neurologic : Cranial nerve II to XII intact. No focal neurological deficits. Psychiatric : alert & oriented x 3. Matching mood & appropriate affect. Judgment & insight intact. Musculoskeletal : Cervical Spine Motor strength in the deltoid and biceps: Normal right side. Normal Left side Motor strength biceps and the wrist extensors: Normal right side . Normal left side Motor strength in the triceps muscle: Normal right side. Normal left side Deep tendon reflexes: Normal at the biceps. Normal at Brachioradialis. Normal at triceps Vertebral body tenderness to deep palpation over Cervical facet loading test: positive bilaterally Spurling test: positive bilaterally Neck distraction test: positive bilaterally Grace sign: positive bilaterally Lumbar spine Motor strength lower extremities ,thigh and legs 5/5 Right side , 5/5 Left side Deep tendon reflexes : Normal Knee Jerk. Normal Ankle Jerk Vertebral body tenderness over Bernabe Test positive Lumbar facet Loading Test: positive Right / positive Left Range of motion of the lumbar spine Flexion 30 degrees, extension 10 degrees Straight Leg Raise test: Left/ Right positive at degree Marty test: positive right / positive left. Severe tenderness over the Sacroiliac joint on the Right / Left sides Gaenslen test: positive bilaterally Seated flexion test: positive bilaterally. Sacral spine : Severe tenderness over the Sacroiliac joint: right side / left side Range of motion: Flexion of the lumbar spine <60 degrees Range of motion: Extension of the lumbar spine <20 degrees Gaenslen's Test positive on L Marty test: positive right side / left side Thigh Thrust Test L positive Sacral Thrust Test Assessment/ Plan : L Sacroiliitis, Polyneuropathy Recommendation of medication management. Lyrica 150mg #120 w 2 RF. Blood tox screen from 12/13/23 reviewed and consistent. Opiate/ narcotic agreement signed 08/07/24. Pt and caregiver at side acknowledged understanding. Use, side effects, adverse reactions and safe storage discussed. All questions answered. I have spent greater than 30 minutes on patient care today. Dr Macario was available by phone for the evaluation of this patient. The time was used to review the medical records including relevant urine studies and Prescription history (MAPs), review of the available imaging, evaluation and examination of the patient, coordination of care with the medical staff and if applicable [facility] physicians, as well as creation of the medical record PQRS Narrative: Smoking Status Former smoker Hx Alcohol Use (MH) No Home Medications: Ambulatory Orders Aspirin 81 mg PO QAM 05/23/14 Multivitamins, Thera [Multivitamin (formulary)] 1 tab PO QAM 05/23/14 Atorvastatin Calcium [Lipitor] 80 mg PO HS 10/10/14 Cetirizine HCl [Zyrtec] 10 mg PO QAM PRN 10/10/14 oxyBUTYnin chloride [Ditropan] 20 mg PO DAILY 10/10/14 Metoprolol Tartrate [Lopressor] 50 mg PO BID 01/03/16 Nortriptyline [Pamelor] 20 mg PO HS 01/03/16 FLUoxetine HCL [PROzac] 20 mg PO DAILY 06/30/17 Docusate [Colace] 100 mg PO DAILY 08/04/23 Melatonin 10 mg PO HS PRN 08/04/23 Tamsulosin [Flomax] 0.4 mg PO DAILY 08/04/23 methocarbamoL 750 mg PO QID 08/04/23 Pregabalin [Lyrica] 150 mg PO QID 30 Days #120 capsule 05/01/24 Controlled Substance Measures - Controlled Substance Measures Is patient prescribed a controlled substance at discharge?: Yes When asked, does pt state using other controlled substances?: No If prescribed controlled substance>3 days was MAPS reviewed?: Yes
== END ==
LOC: PNWHC3 10:10
PROVIDERS: ATTEND Specialist
DX: M47.816 Spondylosis without myelopathy or radiculopathy, lumbar region (principal); M46.1 Sacroiliitis, not elsewhere classified; G62.9 Polyneuropathy, unspecified; Z87.891 Personal history of nicotine dependence
CPT/HCPCS: 99211

== ENCOUNTER 2025-03-13 19:09 | Emergency (ER) | payer MEDICARE ==
[2025-03-13 20:36] VITALS: RESP 18
[2025-03-13] MEDS: MORPHINE SULFATE 4 MG/ML SYRINGE IVP STA (20:36)
--- NOTE | 2025-03-13 21:16 | XR ---
EXAMINATION TYPE: XR knee complete LT DATE OF EXAM: 03/13/2025 8:58 PM COMPARISON: Knee radiograph 07/12/2023. CLINICAL INDICATION: Male, 69 years old with history of left knee injury; PHH, pain TECHNIQUE: XR knee complete LT views submitted.. FINDINGS: No acute fracture or sizable suprapatellar joint effusion. Severe tricompartmental degenera tive osteoarthritis with severe medial compartment joint space loss. No focal osseous erosion or aggr essive periosteal reaction. IMPRESSION: 1. No acute osseous abnormality. 2. Severe tricompartmental degenerative arthritis with near complete medial compartment joint space loss. [facility], , 03/13/2025 9:14 PM
--- NOTE | 2025-03-13 21:18 | XR ---
EXAMINATION TYPE: XR Hip Complete LT DATE OF EXAM: 03/13/2025 8:58 PM COMPARISON: Hip radiograph 07/01/2014. CLINICAL INDICATION: Male, 69 years old with history of left hip injury; PHH, pain TECHNIQUE: XR Hip Complete LT; Frontal and lateral views FINDINGS: No acute fracture. Left hip arthroplasty without periprosthetic loosening. No soft tissue m ass. IMPRESSION: No acute osseous abnormality or evidence of acute hardware competition. [facility], , 03/13/2025 9:15 PM
--- NOTE | 2025-03-13 21:52 | ED ---
Fall HPI - General Chief Complaint: Fall Stated Complaint: fall Time Seen by Provider: 03/13/25 21:49 Source: patient, EMS, RN notes reviewed Mode of arrival: EMS - History of Present Illness Initial Comments: 69-year-old male presenting for left hip injury 2 days ago. States he was standing up after using the toilet, lost his balance and fell onto his left knee and hip. Denies head injury or loss of consciousness. Denies blood thinners. Takes a baby aspirin daily. States over the past 2 days he has been having left hip and knee pain. Reports a intermittent, sharp, shooting pain that radiates down the left lower extremity. Denies back pain. Denies bowel or bladder incontinence. Denies saddle anesthesia. No other injuries. Patient does have a history of CVA with left-sided deficits. Since then, patient has had minimal ambulation but is able to transfer himself into his wheelchair and around his home. Patient does live with friends. - Related Data Home Medications Medication Instructions Recorded Confirmed Aspirin 81 mg PO QAM 05/23/14 02/07/24 Multivitamins, Thera [Multivitamin 1 tab PO QAM 05/23/14 02/07/24 (formulary)] Atorvastatin Calcium [Lipitor] 80 mg PO HS 10/10/14 02/07/24 Cetirizine HCl [Zyrtec] 10 mg PO QAM PRN 10/10/14 02/07/24 oxyBUTYnin chloride [Ditropan] 20 mg PO DAILY 10/10/14 02/07/24 Metoprolol Tartrate [Lopressor] 50 mg PO BID 01/03/16 02/07/24 Nortriptyline [Pamelor] 20 mg PO HS 01/03/16 02/07/24 FLUoxetine HCL [PROzac] 20 mg PO DAILY 06/30/17 02/07/24 Docusate [Colace] 100 mg PO DAILY 08/04/23 02/07/24 Melatonin 10 mg PO HS PRN 08/04/23 02/07/24 Tamsulosin [Flomax] 0.4 mg PO DAILY 08/04/23 02/07/24 methocarbamoL 750 mg PO QID 08/04/23 02/07/24 Previous Rx's Medication Instructions Recorded Pregabalin [Lyrica] 150 mg PO QID 30 Days #120 capsule 08/07/24 Pregabalin [Lyrica] 150 mg PO QID 30 Days #120 cap 08/22/24 predniSONE [Deltasone] 40 mg PO DAILY #10 tab 03/13/25 Allergies Allergy/AdvReac Type Severity Reaction Status Date / Time No Known Allergies Allergy Verified 03/13/25 19:20 Review of Systems ROS Statement: Those systems with pertinent positive or pertinent negative responses have been documented in the HPI. ROS Other: All systems not noted in ROS Statement are negative. Past Medical History Past Medical History: Asthma, COPD, CVA/TIA, Hyperlipidemia, Hypertension, Myocardial Infarction (CT) Additional Past Medical History / Comment(s): OVERACTIVE BLADDER,WEARS A BRIEF. "MASSIVE STROKE AFFECTED NON DOMINANT LT SIDE-WEARS LT LEG BRACE SOMETIMES. ABLE TO TRANSFER SELF FROM BED TO CHAIR BUT NOT AMBULATE BY SELF. CURRENTLY WORKING W/ PT W/ [employer]/ASSISTANCE AND A CANE -SHORT DISTANCE. BUT AFTER ABOUT 10 STEPS GETS LEG CRAMPS" ,no open skin areas Last Myocardial Infarction Date:: 1986 History of Any Multi-Drug Resistant Organisms: None Reported Past Surgical History: Heart Catheterization, Orthopedic Surgery Additional Past Surgical History / Comment(s): D/T BRAIN SWELLING AFTER MASSIVE STROKE PT STATED THEY TOOK RT SIDE OF SKULL OFF AND PLACED IN RT SIDE OF ABD TO KEEP IT VIABLE UNTIL THEY COULD PUT IT BACK. OTHER HX" SEVERAL HEART CATHS NO STENTS, JOE KNEE SX-CARTILAGE REMOVED. Past Anesthesia/Blood Transfusion Reactions: No Reported Reaction Past Psychological History: No Psychological Hx Reported, Depression Smoking Status: Former smoker - Past Family History Father History Unknown: Yes Mother Family Medical History: Hyperlipidemia, Hypertension, Thyroid Disorder General Exam Limitations: physical limitation General appearance: alert, in no apparent distress Head exam: Present: atraumatic, normocephalic, normal inspection Left Hip exam: Present: normal inspection, internal rotation. Absent: full ROM (Limited flexion and extension of left hip), tenderness, swelling, abrasion, laceration, deformity, external rotation, shortening Upper Leg exam: Present: normal inspection, full ROM. Absent: tenderness, swelling Knee exam: Present: normal inspection, full ROM. Absent: tenderness, swelling Lower Leg exam: Present: normal inspection, full ROM. Absent: tenderness, swelling Ankle exam: Present: normal inspection, full ROM. Absent: tenderness, swelling Foot/Toe exam: Present: normal inspection, full ROM. Absent: tenderness, swelling Neurovascular tendon exam: Present: no vascular compromise. Absent: pulse deficit, abnormal cap refill, motor deficit, sensory deficit Neurological exam: Present: alert, oriented X3 Psychiatric exam: Present: normal affect, normal mood Skin exam: Present: warm, dry, intact, normal color. Absent: rash Course Vital Signs 03/13/25 03/13/25 03/13/25 19:13 20:35 22:08 Temperature 99.4 F Pulse Rate 76 73 68 Respiratory 20 18 18 Rate Blood Pressure 96/60 106/63 114/64 O2 Sat by Pulse 91 L 94 L 96 Oximetry Medical Decision Making - Medical Decision Making Was pt. sent in by a medical professional or institution (SURY Chung, CONSULTING ANALYST, urgent care, hospital, or retirement...) When possible be specific @ -No Did you speak to anyone other than the patient for history (EMS, parent, family, police, friend...)? What history was obtained from this source @ -No Did you review nursing and triage notes (agree or disagree)? Why? @ -I reviewed and agree with nursing and triage notes Were old charts reviewed (outside hosp., previous admission, EMS record, old EKG, old radiological studies, urgent care reports/EKG's, retirement records)? Report findings @ -No old charts were reviewed Differential Diagnosis (chest pain, altered mental status, abdominal pain women, abdominal pain men, vaginal bleeding, weakness, fever, dyspnea, syncope, headache, dizziness, GI bleed, back pain, seizure, CVA, palpatations, mental health, musculoskeletal)? @ -Differential Musculoskeletal Muscular strain, contusion, ligament sprain, fracture, arthritis, septic arthritis, bursitis, cellulitis, muscle spasm, nerve compression, DVT, arterial occlusion, herpes zoster, electrolyte abnormality, tumor.... This is not meant to be in all inclusive list EKG interpreted by me (3pts min.). @ -None X-rays interpreted by me (1pt min.). @ -X-ray left hip and left knee identifies no acute fracture or dislocation CT interpreted by me (1pt min.). @ -CT left hip reveals left hip prosthesis and metal artifact that limits evaluation however no acute fracture or dislocation U/S interpreted by me (1pt. min.). @ -None done What testing was considered but not performed or refused? (CT, X-rays, U/S, labs)? Why? @ -None What meds were considered but not given or refused? Why? @ -None Did you discuss the management of the patient with other professionals (professionals i.e. , PA, CONSULTING ANALYST, lab, RT, psych nurse, addiction social worker, assistant office manager, teacher, custom protection officer, corrections caseworker)? Give summary @ -No Was smoking cessation discussed for >3mins.? @ -No Was critical care preformed (if so, how long)? @ -No Were there social determinants of health that impacted care today? How? (Homelessness, low income, unemployed, alcoholism, drug addiction, transportation, low edu. Level, literacy, decrease access to med. care, penitentiary, rehab)? @ -No Was there de-escalation of care discussed even if they declined (Discuss DNR or withdrawal of care, Hospice)? DNR status @ -No What co-morbidities impacted this encounter? (DM, HTN, Smoking, COPD, CAD, Cancer, CVA, ARF, Chemo, Hep., AIDS, mental health diagnosis, sleep apnea, morbid obesity)? @ -None Was patient admitted / discharged? Hospital course, mention meds given and route, prescriptions, significant lab abnormalities, going to OR and other pertinent info. @ - discharge. 61-year-old male presenting for left hip injury 2 days ago status post mechanical fall. Neurovascularly intact. X-ray left hip and left knee identifies no acute fracture or dislocation. Patient continues to experience severe pain therefore CT left hip ordered at this time. Patient was provided with additional course of analgesics including Toradol and steroids while awaiting CT scan. CT left hip reveals left hip prosthesis and metal a rtifact that limits evaluation however no acute fracture or dislocation. Upon reevaluation, patient reports his pain is now a 0 out of 10. Results discussed with patient. Patient can be safely discharged home with close outpatient follow-up care. Appropriate return precautions discussed. Patient verbalizes understanding and agrees to plan. Case was discussed with my ED attending Dr. Morocho. Undiagnosed new problem with uncertain prognosis? @ -No Drug Therapy requiring intensive monitoring for toxicity (Heparin, Nitro, Insulin, Cardizem)? @ -No Were any procedures done? @ -No Diagnosis/symptom? @ -Left hip strain Acute, or Chronic, or Acute on Chronic? @ -Acute Uncomplicated (without systemic symptoms) or Complicated (systemic symptoms)? @ -Uncomplicated Side effects of treatment? @ -No Exacerbation, Progression, or Severe Exacerbation? @ -No Poses a threat to life or bodily function? How? (Chest pain, USA, CT, pneumonia, PE, COPD, DKA, ARF, appy, cholecystitis, CVA, Diverticulitis, Homicidal, Suicidal, threat to staff... and all critical care pts) @ -No Disposition Clinical Impression: Strain of left hip Disposition: HOME SELF-CARE Condition: Stable Instructions (If sedation given, give patient instructions): Hip Sprain (ED) Additional Instructions: Take [id number] Tylenol for the pain as well as prednisone as directed. Follow-up with your doctor for reevaluation. Please return to the Emergency Department if symptoms worsen or any other concerns. Prescriptions: predniSONE [Deltasone] 40 mg PO DAILY #10 tab Is patient prescribed a controlled substance at d/c from ED?: No Referrals: Ronald Banuelos MD [Primary Care Provider] - 1-2 days Time of Disposition: 23:12
[2025-03-13] MEDS: KETOROLAC 15 MG/ML 1 ML VIAL IVP STA (22:03)
[2025-03-13] MEDS: methylPREDNISolone SOD SUCCI 125 MG/2 ML VIAL IV STA (22:04)
--- NOTE | 2025-03-13 22:45 | CT ---
EXAM: CT Left Lower Extremity Without Intravenous Contrast, Hip CLINICAL HISTORY: ITS.REASON CT Reason: left hip injury TECHNIQUE: Axial computed tomography images of the left hip without intravenous contrast. CTDI is 23.3 mGy and DLP is 892.1 mGy-cm. This CT exam was performed using one or more of the following dose reduction techniques: automated exposure control, adjustment of the mA and/or kV according to patient size, and/or use of iterative reconstruction technique. Metal artifact left hip prosthesis. COMPARISON: Left hip x-ray, same day. FINDINGS: Bones/joints: Left hip prosthesis with metal artifact limiting evaluation. No prosthetic fracture or loosening. No acute fracture. No dislocation. Soft tissues: Unremarkable, though limited due to metal artifact. IMPRESSION: 1. Left hip prosthesis and metal artifact that limits evaluation. 2. No fracture or acute bony abnormality.
[2025-03-13 23:36] VITALS: PULSE 70
[2025-03-14 00:10] VITALS: BP 122/78; TEMP 98.9
== END 2025-03-14 00:10 | disposition home or self-care (01) ==
LOC: EC 19:09
DX: S76.012A Strain of muscle, fascia and tendon of left hip, initial encounter (principal); Z79.82 Long term (current) use of aspirin; Z87.891 Personal history of nicotine dependence; W01.0XXA Fall on same level from slipping, tripping and stumbling without subsequent striking against object, initial encounter
CPT/HCPCS: 73502; 73562; 73700; 99284; 96374; 96375; J2270; J1885; J2919